=== PATIENT | male | born 1935 | race Caucasian/White ===

== ENCOUNTER 2017-04-30 07:34 | Inpatient (IN) | payer MEDICARE, BC ==
[2017-04-30] VITALS (8 sets, daily range): BP systolic 111–168; BP diastolic 55–90; PULSE 53–68; RESP 16–18; TEMP 97.5–97.9; O2SAT 95–97
[~2017-04-30] VITALS: Ht 185.4 cm; Wt 98.0 kg
[~2017-04-30 07:34] MED LIST: ASPI81 PO; BACT2OIN TOP; CENTTAB9 PO; IMDU30TA PO; METO25 PO; NITR.4 SL; RAPA8CAP PO; SULF1TAB47 PO; ZOCO40TA PO
[2017-04-30] MEDS ORDERED: IBUP200C17 (08:13)
[2017-04-30] MEDS ORDERED: ASPI81TA9 PO (08:13)
[2017-04-30] MEDS ORDERED: BYST2.5T2 PO (08:13)
[2017-04-30] MEDS ORDERED: CENTCHW3 (08:13)
[2017-04-30 08:30] LABS: AUTOMATED NEUTROPHIL # 3.2 TH/MM3 (1.8-7.7); BASOPHIL % 0.9 % (0.0-2.0); EOSINOPHIL # 0.2 TH/MM3 (0-0.4); EOSINOPHIL % 4.4 % (0.0-4.0); HEMATOCRIT 41.5 % (39.0-51.0); HEMO FLAGS DIFF FINAL; LYMPH % 21.8 % (9.0-44.0); LYMPHOCYTE # 1.2 TH/MM3 (1.0-4.8); MEAN CELL VOLUME 93.6 FL (80.0-100.0); MEAN CORPUSCULAR HEMOGLOBIN 31.6 PG (27.0-34.0); MEAN CORPUSCULAR HGB CONC 33.7 % (32.0-36.0); MONO % 12.6 % (0.0-8.0); NEUT % 60.3 % (16.0-70.0); PLATELET COUNT 218 TH/MM3 (150-450); RED BLOOD COUNT 4.43 MIL/MM3 (4.50-5.90); RED CELL DISTRIBUTION WIDTH 12.6 % (11.6-17.2); WHITE BLOOD COUNT 5.3 TH/MM3 (4.0-11.0)
[2017-04-30 08:36] LABS: APTT (PATIENT) 26.6 SEC (24.3-30.1); PROTHROMBIN TIME - PATIENT 10.9 SEC (9.8-11.6)
[2017-04-30 08:56] LABS: BICARBONATE 30.4 MEQ/L (21.0-32.0); POTASSIUM 3.7 MEQ/L (3.5-5.1)
[2017-04-30] MEDS: NS 1000P @30 MLS/HR (KVO) IV SCH (08:58)
[2017-04-30] MEDS ORDERED: HEPARIN-NS/PF INJ 500 ML ONE (10:34)
[2017-04-30] MEDS ORDERED: MIDAZOLAM HCL 2 MG/2 ML VIAL ONE (10:34)
[2017-04-30] MEDS ORDERED: SODIUM CHLOR 0.9% 1000 ML INJ 1,000 ML IV SCH (11:33)
--- NOTE | 2017-04-30 11:33 | CATHPROC ---
Versus HIS Report Study Information Study Number Admission Scheduled Start Study Start [id number] 04/30/2017 04/30/2017 Apr 30 2017 10:41AM Study Type Left/Possible PCI Referring Institution Admit Source Facility Department 1 Other [facility] Market Master Physician and Clinical Staff Initial Elvin Catherine Biosecurity Officer Mary Peck,KIMBERLEE Recorder Debbie Gutiérrez,RT(R) Lily MckennaRT(R) (BS) Procedures Performed Procedure Location (Site) Vessel Name Angiogram LV LV Ventricle Coronary Angiograms LCA Left Coronary Coronary Angiograms RCA Right Coronary L Heart Cath Wire insertion Fem Art (right) Femoral Art Equipment Time Broadband Engineer Description Size Mfg Part Number Used/Scraped TRANSDUCER, TRUWAVE [id number] 10:47 HERRING PECK * Used W/STOCKCOCK *[id number] *[id number] *[id number] PIGTAIL ANG. 145 INFINITI [id number] CATHETER *[id number] 10:47 [employer] INDUSTRIES PACK, CCL CUSTOM * Used *[id number] 10:47 [employer] PACER PEN, SKIN DUAL W/ RULER * Used *[id number] 10:47 Minutta SHEATH, FR6.5 PRELUDE 11CM FR 6.5 038ACT Used *[id number] 10:47 Minutta WIRE, 3MMJ .035 180CM 180CM Used *[id number] 10:47 NAMIC MANIFOLD, 4 PORT * Used *[id number] 10:47 [employer] OMNIPAQUE, 350 MG, 100ML 100ML [id number] Used 11:00 [employer] OMNIPAQUE, 350 MG, 150ML 150ML [id number] Used [id number] 10:47 [facility] BLANKET,WARM AIR CCL * Used *[id number] History: Current Medications Medication Dosage/Unit Route Frequency Last Date/Time Taken ASA Beta Jaren CRESTOR History: Allergies Allergy Reaction Codeine NAUSEA History: Risk Factors Family History of Hypertension Dyslipidemia Previous HI Previous Heart Failure Premature CAD Yes Yes Yes No No Prior Valve Prior PCI Prior PCIDate Prior CABG Surgery No Yes 04/01/2012 No Cerebrovascular Peripheral Artery Chronic Lung On Dialysis Diabetes Disease Disease Disease No No Yes No No History: Symptoms/Diagnosis Selection Items Chest pain History: CV Disease Selection Items Known CAD History: Stress Tests Stress or Imaging Studies Performed No History: Other Disease Selection Items CAD HTN History: Other Current Smoker Method Quit Packs a Day Years Used Pack Years No Cigarettes 50 Years Ago 1 10 10 Labs Hgb (g/dl) Hct (%) WBC (l/cumm) Platelets (thousands) 11.60-17.00 35.00-51.00 4.00-11.00 150.00-450.00 14.0 41.5 5.3 218 Glucose (mg/dl) BUN (mg/dl) Creatinine (mg/dl) BUN:Creatinine (1:x) 74.00-106.00 7.00-18.00 0.50-1.30 10.00-20.00 109 17 0.8 21.3 Na (meq/l) K (meq/l) Cl (meq/l) CO2 (mmol/L) Ca (mg/dl) 136.00-145.00 3.50-5.10 98.00-107.00 21.00-32.00 8.50-10.10 139 3.7 104 30.4 9 PT (sec) PTT (sec) INR (PTT:PT) 9.80-11.60 24.30-30.10 0.90-1.10 10.9 26.6 1 CPK-MB (ng/ML) 0.50-3.60 Not Drawn Medication Medication Total Dose (Bolus/Oral) Medication Total Dosage/Unit 1% XYLOCAINE 20 mL VERSED 1 mg Medications (Bolus/Oral) Medication Time Given Dosage/Unit Administered By Reason VERSED 04/30/2017 10:52:16 AM 1 mg Mary Peck Patient arrived on 1 mg VERSED given by Mary Peck, RN via Peripheral IV. 1% XYLOCAINE 04/30/2017 10:53:32 AM 20 mL Elvin Morales 20 mL 1% XYLOCAINE given in lab by Elvin Morales in Right Groin via Subcutaneous. Medication (Drip) Medication Time Given Dosage/Unit Concentration/Unit Diluent (ml) Solution IV Solutions 04/30/2017 10:43:07 AM 0 mL (IV) 500 NaCl .9 Patient arrived on IV Solutions in Left Antecubital via Peripheral IV. Pump/Drip Flow = 20 ml/hr usin g NaCl .9. Initial Case Assessment Cardiovascular HR Rhythm NIBP Chest Pain 52 KERI 155/74 0 Edema Present Skin color Skin None Normal Warm Circulatory - Right Pulses Dorsalis Pedis Femoral 2 3 Scale (0,1,2,3,4,d) Circulatory - Left Pulses Dorsalis Pedis Femoral 2 3 Scale (0,1,2,3,4,d) Circulatory - Lower Extremities Color Lower Right Color Lower Left Normal Normal Neurological State Oriented to time-place- Alert Moves all extremities person Respiration - General Respiration Rate SpO2 (%) (B/min) 11 96 Final Case Assessment Cardiovascular HR Rhythm NIBP Chest Pain 55 KERI 133/69 0 Edema Present Skin color Skin None Normal Warm Circulatory - Right Pulses Dorsalis Pedis Femoral 2 2 Scale (0,1,2,3,4,d) Circulatory - Left Pulses Dorsalis Pedis Femoral 2 2 Scale (0,1,2,3,4,d) Circulatory - Lower Extremities Color Lower Right Color Lower Left Normal Normal Neurological State Oriented to time-place- Alert Moves all extremities person Respiration - General Respiration Rate SpO2 (%) (B/min) 17 95 Chronological Log Time Study Chronological Log 10:25:40 Patient arrived via Bed. 10:26:11 Patient Name, D.O.B, / Armband Verified By R.N. 10:27:16 Consent signed by the physician and the patient and verified by the Market Master staff. 10:28:23 Pre-op and post- op instructions given; patient acknowledges understanding of instructions. Verbal Stimulation=~VERBAL~ Physical Stimulation=~PHYSICAL~ Airway=~AIRWAY~ Respiration=~RESPIR ATION~ 10:29:26 TOTAL=~TOTAL~. (0=absent, 1=limited, 2=present) 10:30:43 Patient has been NPO for More than 6Hrs. 10:31:48 Skin Breakdown- 10:32:54 Patient Warmer Placed on the Table. 10:33:20 A # 20 IV was noted in the Antecubital (left). Grade = 0 10:40:03 MD arrived. Vitals capture started with the following parameters, Patient=Adult, Interval=5 min, Initial Pr zzoriq=267 mmHg, 10:40:41 Deflation Rate=5 mmHg 10:42:51 Reference ECG taken 10:43:07 Patient arrived on IV Solutions in Left Antecubital via Peripheral IV. Pump/Drip Flow = 20 ml/hr using NaCl .9. 10:43:22 History and physical on the chart or being dictated. Assessment: Initial Case, HR=52 BPM, Rhythm=KERI, OAPD=462/74 mmhg, Chest Pain=0, Edema=None, Color=Normal, Skin = Warm Right Pulses: Enoch Ped=2, Femoral=3 Left Pulses: Enoch Ped=2, Femoral=3 10:43:23 Lower Right Extremities: Color=Normal Lower Left Extremities: Color=Normal Neurological: State=Alert, Ox3, MCCARTY Respiration: Resp=11 B/min, SpO2=96 % 10:43:59 Bilateral groins prepped with 2% chlorhexidine, and with a 3 min. waiting time. 10:44:24 HR=53 bpm, FJWC=415/74 mmhg, SpO2=96.0 %, Resp=17 B/min, Pain=0, Sade=10, Hall=2 10:49:27 HR=55 bpm, ANUA=571/74 mmhg, SpO2=96.0 %, Resp=13 B/min, Pain=0, Sade=10, Hall=2 Time Out. Correct patient, correct procedure,correct physician, ,power injector loaded with con trast with surgical team 10:51:02 present. Time Out Concurred by MD, individual staff and FEED MIXER in procedure 10:51:16 Case Start 10:52:06 Pressure channel 1 zeroed. 10:52:16 Patient arrived on 1 mg VERSED given by Mary Peck, KIMBERLEE via Peripheral IV. 10:53:11 Verbal Stimulation=2 Physical Stimulation=2 Airway=2 Respiration=2 TOTAL=8. (0=absent, 1=li mited, 2=present) 10:53:32 20 mL 1% XYLOCAINE given in lab by Elvin Morales in Right Groin via Subcutaneous. 10:54:28 HR=56 bpm, ILVI=367/78 mmhg, SpO2=93.0 %, Resp=17 B/min, Pain=0, Sade=10, Hall=2 10:58:29 Access site was Right Femoral Artery. 10:58:37 A wire was inserted via Fem Art (right). 10:58:40 A SHEATH, FR6.5 PRELUDE 11CM FR 6.5 was advanced into the Fem Art (right) using the Percuta neous technique. 10:59:31 HR=52 bpm, CHEK=855/73 mmhg, SpO2=94.0 %, Resp=15 B/min, Pain=0, Sade=10, Hall=2 A 3DRC INFINITI CATHETER FR 6 was advanced over a wire. OMNIPAQUE, 350 MG, 100ML 100ML was used for 10:59:39 injections. Recorded Pressure: Ao, HR=53, Condition=Condition 1 11:01:28 (Aorta) Ao 157/70/103 11:02:32 The RCA was injected and visualized at various angles. OMNIPAQUE, 350 MG, 100ML 100ML used . After removing the current catheter a PIGTAIL ANG. 145 INFINITI CATHETER FR 6 was advanced over a WIRE, 3MMJ 11:03:33 .035 180CM 180CM. 11:04:28 HR=53 bpm, VHBQ=362/73 mmhg, SpO2=93.0 %, Resp=11 B/min, Pain=0, Sade=10, Hall=2 Recorded Pressure: LV, HR=58, Condition=Condition 1 11:04:43 (Left Ventricle) LV 159/3/15 Recorded Pressure: LV, HR=53, Condition=Condition 1 11:05:08 (Left Ventricle) LV 158/4/15 11:06:34 The LV was injected at 10 cc/sec for a total of 30. OMNIPAQUE, 350 MG, 100ML 100ML used. Recorded Pressure: LV, Ao, HR=56, Condition=Condition 1 11:07:20 (Left Ventricle) LV 149/6/15, (Aorta) Ao 151/65/97 After removing the current catheter a JL 4.5 INFINITI CATHETER FR 6 was advanced over a WIRE, 3 MMJ .035 180CM 11:07:51 180CM. Recorded Pressure: Ao, HR=59, Condition=Condition 1 11:09:00 (Aorta) Ao 145/63/95 11:09:30 HR=55 bpm, TDMX=339/72 mmhg, SpO2=94.0 %, Resp=13 B/min, Pain=0, Sade=10, Hall=2 11:15:02 The LCA was injected and visualized at various angles. OMNIPAQUE, 350 MG, 100ML 100ML used . 11:15:09 HR=55 bpm, JUSQ=881/69 mmhg, SpO2=95.0 %, Resp=17 B/min, Pain=0, Sade=10, Hall=2 11:15:30 Catheter was removed Assessment: Final Case, HR=55 BPM, Rhythm=KERI, YCAM=768/69 mmhg, Chest Pain=0, Edema=None, Color=Normal, Skin = Warm Right Pulses: Enoch Ped=2, Femoral=2 Left Pulses: Enoch Ped=2, Femoral=2 11:15:34 Lower Right Extremities: Color=Normal Lower Left Extremities: Color=Normal Neurological: State=Alert, Ox3, MCCARTY Respiration: Resp=17 B/min, SpO2=95 % 11:16:00 Catheter(s) removed without difficulty 11:16:08 Case End 11:16:10 Sterile dressing applied to site 11:16:11 No case complications noted. 11:16:13 Cine recording checked. 11:16:17 Bedside Report will be given. 11:16:18 Contrast Scanned 11:16:22 A Left Heart Cath was performed. 11:16:26 Clinical correlaton risk stratification. 11:20:06 NUGR=525/71 mmhg, Pain=0, Sade=10, Hall=2 End Study - Contrast Media Used In Study Contrast Total Opened (mL) Total Used (mL) Total Wasted (mL) Omnipaque 75 75 0 End Study - Maximum Contrast Load Max Contrast Load (mL) 586.9 End Study - Radiation Exposure Fluoro Time (minutes) 3.3 End Study - Patient Disposition Complications Transferred To No Outpatient Bed
[2017-04-30] MEDS ORDERED: MISC INFORMATION XX ONE (11:45)
[2017-04-30] MEDS ORDERED: BACITRACIN OINT 0.9 GM PKT TOP ONE (11:45)
[2017-04-30] MEDS ORDERED: oxyCODONE/ACETAMINOPHEN 5 MG/325 MG TAB PO PRN (11:45)
[2017-04-30] MEDS ORDERED: ONDANSETRON HCL 4 MG/2 ML VIAL IV PRN (11:45)
[2017-04-30] MEDS ORDERED: SODIUM CHLORIDE 0.9% FLUSH 10 ML FLUSH IV FLUSH PRN (11:45)
--- NOTE | 2017-04-30 12:39 | MA ---
cc: MARK KENNY M.D., JEFFREY DATE: 04/30/2017 PROCEDURE PERFORMED Left heart catheterization, left ventriculography, coronary angiography. BRIEF HISTORY Juan Alberto Garcia is a 82-year-old man with known multivessel coronary artery disease. In the last 3 weeks his angina has accelerated to the point where he has angina with just minimal activity. Based on the anginal pattern it could be deemed unstable. DESCRIPTION OF PROCEDURE The patient was brought to the cardiac laborer wharf in a fasting state. The right groin was prepped and draped in sterile fashion. Using 1% lidocaine for local anesthesia I entered the right femoral artery with a needle but was unable to pass a wire. I stopped and held pressure and obtained hemostasis and then second time was able to get clean access and a 6-1/2 Mohawk sheath was placed. I used the 3DRC catheter and a regular wire and carefully navigated through the iliac tortuosity into the ascending aorta. The remainder of the case was performed using the exchange wire. The patient is known to have tortuous iliacs and a small abdominal aortic aneurysm. Right coronary angiography was performed using the 3DRC catheter with pressure damping. The left ventricular pressure followed by left ventriculography and then a pullback were performed using an angled pigtail catheter. The left coronary angiography was performed using a left 4.5 Manisha catheter without damping. The sheath is being pulled manually. There were no complications. FINDINGS 1. Hemodynamics. Left ventricular pressure was 149/6 with an end-diastolic pressure of 15. Aortic pressure is 145/63 with a mean 95. There is no gradient during pullback from left ventricle to the aorta. 2. Left ventriculography. LV ejection fraction is about 50% without obvious focal wall motion abnormalities. There is a trivial 1+ degree of mitral regurgitation. 3. Coronary angiography. The left main coronary artery is diffusely diseased and eccentric, probably eccentric 50% ostial stenosis but suspect diffuse plaquing in the LAD. It bifurcates into the LAD and circumflex vessels. Left anterior descending artery is diseased at the ostium about 70% and ends up with about a 70% stenosis before the bifurcation of the major diagonal. Major diagonal is severely diseased, it bifurcates, there is probably 80% disease of the diagonal. The remainder of the LAD demonstrates mild diffuse disease but appears graftable. Suspect there may be a significant intramyocardial segment based on the shape of the LAD. The circumflex artery is dominant. It gives off one major obtuse marginal branch, one significant posterolateral branch and left posterior descending artery branch. The ostium of the circumflex artery has a 95% tubular stenosis. The major obtuse marginal branch has 50% ostial and 70% proximal disease and is easily graftable vessel. The posterolateral and posterior descending artery branches probably have about 50% disease proximally, at least one of these should be graftable. The right coronary artery is nondominant and has 70% proximal disease. CONCLUSION 1. Slightly elevated left ventricular end-diastolic pressure. 2. Low normal LV systolic function. 3. Severe multivessel disease with critical disease of the ostium of the circumflex artery. PLAN I am going to go ahead and admit him for observation and get a cardiac surgical consult. MD STORM Russell/KATIE /11:35 AM /12:27 PM
--- NOTE | 2017-04-30 12:45 | EKG ---
Date Performed: 04/30/2017 Time Performed: 09:32:34 PTAGE: 82 years EKG: Sinus bradycardia. Inferior T wave changes are nonspecific Borderline ECG PREVIOUS TRACING : 04/01/2012 06.58 DOCTOR: Nasir Loving Interpretating Date/Time 04/30/2017 12:44:35
[2017-04-30] MEDS ORDERED: IOHEXOL 350 MG/ML 100 ML BTL (for Cath Lab) OTHER ONE (16:16)
[2017-04-30] MEDS: NITROGLYCERIN 2% OINT 1 GM PACKET TOPICAL SCH ×2 (18:00→23:31)
--- NOTE | 2017-04-30 18:14 | RADRPT ---
EXAM DATE/TIME: 04/30/2017 17:18 [facility] COMPARISON: No previous studies available for comparison. INDICATIONS : Pre-op cardiac surgery. MEDICAL HISTORY : Hypercholesterolemia. Arthritis. Carcinoma, prostate. Hernia, hiatal. Carcinoma, skin. SURGICAL HISTORY : Right wrist surgery. Hiatal hernai repair. Prostate surgery. Skin cancer removal. ENCOUNTER: Initial ACUITY: 1 day PAIN SCORE: 2/10 LOCATION: Bilateral legs. TECHNIQUE: Venous ultrasound of the left and right leg was performed from the inguinal ligament to the proximal calf. Real-time, color Doppler and spectral tracing, compression and augmentation techniques were us ed. FINDINGS: RIGHT LEG: There is normal compressibility of the deep venous system from the inguinal region to the proximal ca lf. No echogenic clot is seen in the lumen of the common femoral, femoral, popliteal, and posterior tibial veins. There is a normal response of the venous system to proximal and distal augmentation an d respiration. LEFT LEG: There is normal compressibility of the deep venous system from the inguinal region to the proximal ca lf. No echogenic clot is seen in the lumen of the common femoral, femoral, popliteal, and posterior tibial veins. There is a normal response of the venous system to proximal and distal augmentation an d respiration. CONCLUSION: 1. No sonographic evidence for lower extremity DVT. Bob Pastor MD on April 30, 2017 at 18:12 Board Certified Radiologist. This report was verified electronically.
--- NOTE | 2017-04-30 18:14 | RADRPT ---
EXAM DATE/TIME: 04/30/2017 17:02 [facility] COMPARISON: No previous studies available for comparison. INDICATIONS : Pre-op cardiac surgery. MEDICAL HISTORY : Hypercholesterolemia. Carcinoma, prostate. Arthritis. Hernia, hiatal. Carcinoma, skin. SURGICAL HISTORY : Right wrist surgery. Hiatal hernai repair. Prostate surgery. Skin cancer removal. ENCOUNTER: Initial ACUITY: 1 day PAIN SCORE: 1/10 LOCATION: Bilateral neck PEAK SYSTOLIC VELOCITIES (cm/sec): ICA/CCA RATIO: Right: 1.3 Left: 1.1 ICA: Right: 83.6 Left: 86.0 CCA: Right: 64.6 Left: 77.8 ECA: Right: 102.3 Left: 77.8 VERTEBRAL: Right: 43.9 antegrade Left: 34.0 antegrade Elevated flow velocities and ICA/CCA ratios have been found to correlate with increased degrees of vessel stenosis, calculated as percentage of diameter relative to a normal segment of distal ICA/CCA FINDINGS: RIGHT CAROTID: Calcified plaque in the bulb extending to the origin of the right ICA with resultant mild stenos is. Moderate stenosis of the ECA origin. LEFT CAROTID: Calcified plaque in the bulb extending to the origin of the left ICA with resultant mild stenosi s. VERTEBRAL ARTERIES: Antegrade flow is seen in both vertebral arteries. MISCELLANEOUS: None. CONCLUSION: 1. Mild, <50%, stenosis of the internal carotid artery origins bilaterally. 2. Antegrade vertebral artery flow bilaterally. Bob Pastor MD on April 30, 2017 at 18:09 Board Certified Radiologist. This report was verified electronically.
--- NOTE | 2017-04-30 18:16 | RADRPT ---
EXAM DATE/TIME: 04/30/2017 17:37 [facility] COMPARISON: No previous studies available for comparison. INDICATIONS : Pre-op cardiac surgery. MEDICAL HISTORY : Hypercholesterolemia. Hernia, hiatal. Carcinoma, prostate. Arthritis. Carcinoma, skin. SURGICAL HISTORY : Right wrist surgery. Hiatal hernai repair. Prostate surgery. Skin cancer removal. ENCOUNTER: Initial ACUITY: 1 day PAIN SCORE: 2/10 LOCATION: Bilateral legs. GREATER SAPHENOUS VEIN THIGH: PROXIMAL: Right 4 mm Left 3 mm MID: Right 3 mm Left 3 mm DISTAL: Right 3 mm Left 2 mm CALF: PROXIMAL: Right 2 mm Left 2 mm MID: Right 1 mm Left Non-visualized DISTAL: Right 2 mm Left Non-visualized FINDINGS: The venous system of the lower extremities are patent by color Doppler imaging. Measurements of the leg veins (in mm) are listed above. CONCLUSION: 1. Patent saphenous veins with mapping as above. Bob Pastor MD on April 30, 2017 at 18:13 Board Certified Radiologist. This report was verified electronically.
--- NOTE | 2017-04-30 18:29 | RADRPT ---
EXAM DATE/TIME: 04/30/2017 18:14 [facility] COMPARISON: No previous studies available for comparison. INDICATIONS : Evaluate for pneumonia, pneumothorax, or communicable disease. Pre op CABG. MEDICAL HISTORY : Hypercholesterolemia. Carcinoma, prostate. Carcinoma, skin. SURGICAL HISTORY : Hiatal hernai repair. Prostate surgery. Skin cancer removal. ENCOUNTER: Initial ACUITY: 1 day PAIN SCORE: 0/10 LOCATION: Bilateral chest FINDINGS: PA and lateral views of the chest demonstrate the lungs to be symmetrically aerated without evidence of mass, infiltrate or effusion. The cardiomediastinal contours are unremarkable. Osseous structure s are intact. CONCLUSION: No acute disease. Silviano Tamez MD on April 30, 2017 at 18:28 Board Certified Radiologist. This report was verified electronically.
--- NOTE | 2017-04-30 18:54 | RADRPT ---
EXAM DATE/TIME: 04/30/2017 18:18 [facility] COMPARISON: CHEST PA & LAT, April 30, 2017, 18:14. INDICATIONS : Pre-operative for aortic calcification. RADIATION DOSE: 5.68 CTDIvol (mGy) MEDICAL HISTORY : Cardiovascular disease. Carcinoma, prostate. Skin cancer. SURGICAL HISTORY : Hiatal hernia. ENCOUNTER: Initial ACUITY: 1 day PAIN SCALE: 2/10 LOCATION: Bilateral chest TECHNIQUE: Volumetric scanning of the chest was performed. Using automated exposure control and adjustment of t he mA and/or kV according to patient size, radiation dose was kept as low as reasonably achievable to obtain optimal diagnostic quality images. DICOM format image data is available electronically for r eview and comparison. Follow-up recommendations for incidentally detected pulmonary nodules are based at a minimum on nodul e size and patient risk factors according to Fleischner Society Guidelines. FINDINGS: There is mild peribronchial thickening in the lower lobes left greater than right. There is minimal i nfiltrate versus atelectasis in the left lower lobe at the left lung base. There are no fractures. No adenopathy. Extensive corner artery calcification is identified and atherosclerotic calcification of the aorta is present. At the upper pole of the left kidney, 2 exophytic masses are identified measur ing 4.1 and 4.3 cm and 8 and 9 Hounsfield units characteristic of cysts. Adrenals are normal. There i s calcification at the root of the aorta, and there is focal dilatation of the proximal descending th oracic aorta measuring 3.9 x 1.1 cm in transverse and AP dimension. CONCLUSION: 1. Extensive atherosclerosis. 2. There is peribronchial cuffing in both lower lobes with minimal left lower lobe infiltrate identif ied. 3. Mild dilatation of the proximal descending thoracic aorta. Silviano Tamez MD on April 30, 2017 at 18:49 Board Certified Radiologist. This report was verified electronically.
[2017-04-30 19:07] LABS: ALT (GPT) 35 U/L (12-78); AST (GOT) 21 U/L (15-37)
[2017-04-30 19:08] LABS: ALKALINE PHOSPHATASE 89 U/L (45-117); INDIRECT BILIRUBIN 0.4 MG/DL (0.0-0.8); TOTAL BILIRUBIN ADULT 0.5 MG/DL (0.2-1.0)
[2017-04-30] MEDS: SODIUM CHLORIDE 0.9% FLUSH 10 ML FLUSH IV FLUSH SCH (21:19)
[2017-04-30 22:38] LABS: HEMOGLOBIN A1a 0.7 %; HEMOGLOBIN A1b 1.5 %; HEMOGLOBIN Ao 85.8 %; HEMOGLOBIN LA1C 1.7 %; HEMOGLOBIN P3 3.6 %
[2017-05-01] VITALS (29 sets, daily range): BP systolic 107–143; BP diastolic 57–77; PULSE 52–88; RESP 16–18; TEMP 96.9–98.3; O2SAT 93–95
[2017-05-01 00:18] LABS: BLOOD, URINE NEG (NEG); COMMENT (UR) CULT NOT INDICATED; CULTURE IF INDICATED CULT NOT INDICATED; GLUCOSE,URINE NEG (NEG); KETONE, URINE NEG (NEG); NITRITE,URINE NEG (NEG); URINE COLOR YELLOW (YELLW/STRAW)
[2017-05-01] MEDS: NITROGLYCERIN 2% OINT 1 GM PACKET TOPICAL SCH ×4 (05:50→23:24)
[2017-05-01] MEDS: METOPROLOL TARTRATE 25 MG TAB PO SCH ×3 (06:00→23:24)
[2017-05-01 06:45] LABS: AUTOMATED NEUTROPHIL # 4.7 TH/MM3 (1.8-7.7); BASOPHIL % 0.7 % (0.0-2.0); EOSINOPHIL # 0.2 TH/MM3 (0-0.4); EOSINOPHIL % 2.9 % (0.0-4.0); HEMATOCRIT 36.9 % (39.0-51.0); HEMO FLAGS DIFF FINAL; LYMPH % 13.9 % (9.0-44.0); LYMPHOCYTE # 0.9 TH/MM3 (1.0-4.8); MEAN CELL VOLUME 92.4 FL (80.0-100.0); MEAN CORPUSCULAR HEMOGLOBIN 31.8 PG (27.0-34.0); MEAN CORPUSCULAR HGB CONC 34.5 % (32.0-36.0); MONO % 13.2 % (0.0-8.0); NEUT % 69.3 % (16.0-70.0); PLATELET COUNT 183 TH/MM3 (150-450); RED BLOOD COUNT 3.99 MIL/MM3 (4.50-5.90); RED CELL DISTRIBUTION WIDTH 12.5 % (11.6-17.2); WHITE BLOOD COUNT 6.8 TH/MM3 (4.0-11.0)
[2017-05-01 07:23] LABS: BICARBONATE 28.5 MEQ/L (21.0-32.0); POTASSIUM 4.4 MEQ/L (3.5-5.1)
[2017-05-01] MEDS: SODIUM CHLORIDE 0.9% FLUSH 10 ML FLUSH IV FLUSH SCH ×2 (08:16→21:00)
[2017-05-01] MEDS: ASPIRIN EC 81 MG TABEC PO SCH (08:16)
[2017-05-01] MEDS: NS 1000P @30 MLS/HR (KVO) IV SCH (08:16)
--- NOTE | 2017-05-01 08:16 | MB ---
cc: EDWIGE HERRERA DATE OF 1935 DATE OF CONSULTATION 04/30/2017 HISTORY OF THE PRESENT ILLNESS An 82-year-old male a patient of Dr. Kirt Pearson and Dr. Elvin Morales, history of coronary artery disease presented because of the chest discomfort for the last couple of weeks midsternal, dull in nature, feels like a squeezing sensation. Positive for associated shortness of breath. Underwent cardiac cath by Dr. Morales showing EF of 50%, left main of 50%, proximal LAD 70%, diagonal 80%, circumflex is 95%, the OM 75%, proximal RCA 70%. The PDA has 50%. We were consulted to evaluate for coronary artery bypass grafting. PAST MEDICAL HISTORY 1. History of abdominal aortic aneurysm, being followed. 2. Coronary artery disease. 3. Degenerative joint disease. 4. Headache. 5. Hernia. 6. Hyperlipidemia. 7. Peripheral arterial disease followed by Dr. Hickman. 8. Pre diabetes. 9. Prostate cancer. Had prior radiation in 2011. 10. Arthroscopic knee surgery. PAST SURGICAL HISTORY 1. Otherwise he has had a cardiac cath 2011, three-vessel disease. EF of 50% at that time. 2. Bilateral hernia repair. 3. Left partial knee replacement. 4. Skin cancer surgery. ALLERGIES INCLUDE CODEINE, MIRAPEX, REQUIP. MEDICATIONS Home medications include: 1. Aspirin. 2. Bystolic. 3. Crestor. 4. Nitroglycerine as needed. FAMILY HISTORY He has a brother with diabetes. Mother with cancer. Father he has unknown history. SOCIAL HISTORY The patient . Smoked for about 20 years two packs per day, quit 50 years ago. Retired with a [employer]. One child. REVIEW OF SYSTEMS GENERAL: no night sweats, fever, heat and cold intolerance. SKIN: No psoriasis, itching or hives. HEENT: No blurred vision, hearing loss. RESPIRATORY: Positive for some shortness of breath. CARDIOVASCULAR: As above in HPI. GASTROINTESTINAL: No diarrhea or vomiting. GENITOURINARY: No burning, frequency, urgency. CENTRAL NERVOUS SYSTEM: No history of TIA, CVA, seizure disorder. ENDOCRINE: No diabetes or hypothyroidism. PHYSICAL EXAMINATION VITAL SIGNS: On exam blood pressure 160/90, heart rate 52, temperature max 97.3. GENERAL: Patient is awake, alert, no acute distress. HEENT: Head is normocephalic, atraumatic. Oral mucosa pink, moist. He wears dentures. NECK: Supple. No JVD. CARDIOVASCULAR: Heart sounds S1-S2, regular rate and rhythm. He has got a grade 2/6 systolic murmur. LUNGS: Clear to auscultation. No wheezes, rales or rhonchi. ABDOMEN: Soft, nontender. No masses or organomegaly. EXTREMITIES: No cyanosis, clubbing or edema. LABORATORY FINDINGS Shows hemoglobin of 14, hematocrit of 41, white cell count 5.3, platelet count of 218. Sodium 139, potassium 3.7, BUN of 17, creatinine 0.87, glucose 109. INR 1.0. His testing noted per Dr. Elvin Morales, the last abdominal aortic ultrasound in November of 2016 showed a 3 x 4 x 3 x 9 and follow up in 6 months. EKG shows sinus bradycardia, further testing is pending. IMPRESSION This is an 82-year-old male with complaint of chest pain, history of coronary artery disease known three-vessel disease now with multivessel disease, EF of 50%. Cardiac films have been evaluated by Dr. Edwige Herrera. Plan will be for surgery. The patient will be kept in overnight per Dr. Elvin Morales and evaluated the a.m. If no further chest no chest discomfort the patient can possibly be discharged home and then follow up as an outpatient for surgery next week. In the meantime will we will order full workup including carotid ultrasound, leg vein mapping and further lab work. Further planning per Dr. Edwige Herrera. STS data will be discussed and documented in the electronic record. Dictated by MARIO Siddiqi MD MAGALYS Copeland/ISRAEL /4:22 PM /8:19 AM
[2017-05-01] MEDS ORDERED: ATORVASTATIN 10 MG TAB PO SCH (09:00)
[2017-05-01] MEDS: ACETAMINOPHEN 325 MG TAB PO PRN (10:07)
--- NOTE | 2017-05-01 10:22 | PD.CARD.PN ---
Subjective Subjective Remarks c/o headache. No angina Objective Medications Current Medications Medications (Trade) Dose Ordered Sig/Nikki Route Start Time Stop Time Status Last Admin (NS 1000 ml Inj) 1,000 ml @ 30 mls/hr Q24H IV 04/30/17 09:00 05/01/17 08:16 (NS Flush) 2 ml BID IV FLUSH 04/30/17 21:00 05/01/17 08:16 (NS Flush) 2 ml UNSCH PRN IV FLUSH 04/30/17 11:45 (Percocet 5-325 Mg) 1 tab Q4H PRN PO 04/30/17 11:45 (Zofran Inj) 4 mg Q4H PRN IV 04/30/17 11:45 (Ecotrin Ec) 81 mg DAILY PO 05/01/17 09:00 05/01/17 08:16 (Lopressor) 25 mg Q8HR PO 04/30/17 14:00 (Nitroglycerin 2% Oint) 1 inch Q6HR TOPICAL 04/30/17 12:00 05/01/17 05:50 (Lipitor) 10 mg DAILY PO 05/01/17 09:00 05/01/17 08:16 (Tylenol) 650 mg Q4H PRN PO 05/01/17 10:15 05/01/17 10:07 Vital Signs / I&O Vital Signs Date Time Temp Pulse Resp B/P Pulse Ox O2 Delivery O2 Flow Rate FiO2 05/01/17 07:01 88 05/01/17 06:00 62 05/01/17 05:17 21 05/01/17 05:00 54 05/01/17 04:00 96.9 54 18 119/57 93 05/01/17 04:00 64 05/01/17 03:00 54 05/01/17 02:00 64 05/01/17 01:00 62 05/01/17 00:00 97.8 69 18 113/67 94 05/01/17 00:00 52 04/30/17 23:00 68 04/30/17 22:00 60 04/30/17 21:00 58 04/30/17 20:00 57 04/30/17 20:00 97.8 64 18 111/55 95 04/30/17 17:01 64 04/30/17 16:30 97.9 54 18 161/89 97 04/30/17 16:00 55 04/30/17 11:20 96 Room Air I/O 04/30/17 04/30/17 04/30/17 05/01/17 05/01/17 05/01/17 07:00 15:00 23:00 07:00 15:00 23:00 Intake Total 1384 ml Output Total 750 ml Balance 634 ml Intake Oral 480 ml IV Total 904 ml Output Urine Total 750 ml Physical Exam GENERAL: Well developed, well nourished. No acute distress. HEENT: Jugular venous pressure is normal. CHEST: Lungs clear to auscultation bilaterally. Unlabored respiratory effort. CARDIAC: Regular rate and rhythm without S3, S4, or murmur. ABDOMEN: Soft, nontender, no hepatosplenomegaly. Bowel sounds present. EXTREMITIES: No clubbing, cyanosis, or edema. Right groin OK Laboratory Laboratory Tests Test 04/30/17 04/30/17 05/01/17 22:04 23:43 05:48 Blood Type O POSITIVE Antibody Screen NEGATIVE Urine Color YELLOW Urine Turbidity CLEAR Urine pH 7.0 Urine Specific Jermyn 1.022 Urine Protein NEG mg/dL Urine Glucose (UA) NEG mg/dL Urine Ketones NEG mg/dL Urine Occult Blood NEG Urine Nitrite NEG Urine Bilirubin NEG Urine Urobilinogen LESS THAN 2.0 MG/DL Urine Leukocyte Esterase NEG Urine RBC LESS THAN 1 /hpf Microscopic Urinalysis Comment CULT NOT INDICATED White Blood Count 6.8 TH/MM3 Red Blood Count 3.99 MIL/MM3 Hemoglobin 12.7 GM/DL Hematocrit 36.9 % Mean Corpuscular Volume 92.4 FL Mean Corpuscular Hemoglobin 31.8 PG Mean Corpuscular Hemoglobin 34.5 % Concent Red Cell Distribution Width 12.5 % Platelet Count 183 TH/MM3 Mean Platelet Volume 9.7 FL Neutrophils (%) (Auto) 69.3 % Lymphocytes (%) (Auto) 13.9 % Monocytes (%) (Auto) 13.2 % Eosinophils (%) (Auto) 2.9 % Basophils (%) (Auto) 0.7 % Neutrophils # (Auto) 4.7 TH/MM3 Lymphocytes # (Auto) 0.9 TH/MM3 Monocytes # (Auto) 0.9 TH/MM3 Eosinophils # (Auto) 0.2 TH/MM3 Basophils # (Auto) 0.0 TH/MM3 CBC Comment DIFF FINAL Differential Comment Sodium Level 140 MEQ/L Potassium Level 4.4 MEQ/L Chloride Level 105 MEQ/L Carbon Dioxide Level 28.5 MEQ/L Anion Gap 7 MEQ/L Blood Urea Nitrogen 19 MG/DL Creatinine 0.89 MG/DL Estimat Glomerular Filtration 82 ML/MIN Rate Random Glucose 101 MG/DL Calcium Level 8.4 MG/DL Assessment and Plan Problem List: (1) Unstable angina pectoris Assessment and Plan: Had rest pain prior to admit. Keep in hospital until revasc. Add IV heparin (2) 3-vessel CAD Assessment and Plan: needs CABG. Target vessels acceptable (3) Abdominal aortic aneurysm (AAA) Assessment and Plan: Less than 4 cm on last check (4) Hyperlipidemia Assessment and Plan: Intolerant of Lipitor so will DC. Only tolerates Crestor 1x/week which is Mondays. Elvin Morales MD May 01, 2017 10:22
[2017-05-01] MEDS ORDERED: HEPARIN SODIUM - IV 10,000 UNITS/10 ML VIAL IV ONE (10:30)
[2017-05-01] MEDS: HEPARIN-D5W INJ 250 ML IV SCH (11:35)
[2017-05-01] MEDS ORDERED: SODIUM CHLORIDE 0.9% FLUSH 10 ML FLUSH IV FLUSH PRN (14:45)
[2017-05-01] MEDS ORDERED: ceFAZolin 2 GM PREMIX 50 ML IV SCH (14:45)
[2017-05-01] MEDS ORDERED: CEFAZOLIN INJ 500 MG in SODIUM CHLORIDE 0.9% IRR BTL 500 ML IRRIGATION SCH (14:45)
[2017-05-01] MEDS ORDERED: INSULIN REGULAR (IV INFUSION) 100 UNITS in SODIUM CHLORIDE 0.9% INJ 100 ML IV SCH (14:45)
[2017-05-01] MEDS ORDERED: PAPAVERINE INJ 60 MG, NITROGLYCERIN INJ 100 MCG, DILTIAZEM INJ 100 MG in SODIUM CHLORID... IRRIGATION SCH (14:45)
[2017-05-01] MEDS ORDERED: CHLORHEXIDINE GLUCONATE 4% SOLN 120 ML BTL TOPICAL SCH (14:45)
[2017-05-01] MEDS ORDERED: METOPROLOL TARTRATE 25 MG TAB PO SCH (14:45)
--- NOTE | 2017-05-01 15:03 | PD.CAR.PN ---
CVT Progress Note Subjective/Hospital Course: 82/ male hx of CAD c/o of chest discomfort, pt brought in outpt , underwent cardiac cath by Dr Morales , found to have multi vessel disease 50% Left Main, 70 % prox LAD, daig 80% CX 95%, OM 75% RCA 70% EF 50% pt has also been having chest pain at rest PMH: AAA, CAD, DJD, HLP, melanoma , PAD, prostate CA, PAD 05/01 pt c/o of pain at rest, decision to keep pt in hospital and undergo CABG on Thursday 05/03 Objective: GENERAL: SKIN: Warm and dry. HEAD: Normocephalic. EYES: No scleral icterus. No injection or drainage. NECK: Supple, trachea midline. No JVD or lymphadenopathy. CARDIOVASCULAR: Regular rate and rhythm without murmurs, gallops, or rubs. RESPIRATORY: Breath sounds equal bilaterally. No accessory muscle use. GASTROINTESTINAL: Abdomen soft, non-tender, nondistended. MUSCULOSKELETAL: No cyanosis, or edema. BACK: Nontender without obvious deformity. No CVA tenderness. Vital Signs Date Time Temp Pulse Resp B/P Pulse Ox O2 Delivery O2 Flow Rate FiO2 05/01/17 14:01 58 05/01/17 13:00 54 05/01/17 12:00 62 05/01/17 11:15 98.3 57 18 122/62 94 05/01/17 11:00 56 05/01/17 10:00 56 05/01/17 09:00 58 05/01/17 08:01 97.4 59 18 107/64 94 05/01/17 08:00 58 05/01/17 07:01 88 05/01/17 06:00 62 05/01/17 05:17 21 05/01/17 05:00 54 05/01/17 04:00 96.9 54 18 119/57 93 05/01/17 04:00 64 05/01/17 03:00 54 05/01/17 02:00 64 05/01/17 01:00 62 05/01/17 00:00 97.8 69 18 113/67 94 05/01/17 00:00 52 04/30/17 23:00 68 04/30/17 22:00 60 04/30/17 21:00 58 04/30/17 20:00 57 04/30/17 20:00 97.8 64 18 111/55 95 04/30/17 17:01 64 04/30/17 16:30 97.9 54 18 161/89 97 04/30/17 16:00 55 Labs: Laboratory Tests Test 05/01/17 05:48 White Blood Count 6.8 TH/MM3 (4.0-11.0) Red Blood Count 3.99 MIL/MM3 (4.50-5.90) Hemoglobin 12.7 GM/DL (13.0-17.0) Hematocrit 36.9 % (39.0-51.0) Mean Corpuscular Volume 92.4 FL (80.0-100.0) Mean Corpuscular Hemoglobin 31.8 PG (27.0-34.0) Mean Corpuscular Hemoglobin 34.5 % Concent (32.0-36.0) Red Cell Distribution Width 12.5 % (11.6-17.2) Platelet Count 183 TH/MM3 (150-450) Mean Platelet Volume 9.7 FL (7.0-11.0) Neutrophils (%) (Auto) 69.3 % (16.0-70.0) Lymphocytes (%) (Auto) 13.9 % (9.0-44.0) Monocytes (%) (Auto) 13.2 % (0.0-8.0) Eosinophils (%) (Auto) 2.9 % (0.0-4.0) Basophils (%) (Auto) 0.7 % (0.0-2.0) Neutrophils # (Auto) 4.7 TH/MM3 (1.8-7.7) Lymphocytes # (Auto) 0.9 TH/MM3 (1.0-4.8) Monocytes # (Auto) 0.9 TH/MM3 (0-0.9) Eosinophils # (Auto) 0.2 TH/MM3 (0-0.4) Basophils # (Auto) 0.0 TH/MM3 (0-0.2) CBC Comment DIFF FINAL Differential Comment Sodium Level 140 MEQ/L (136-145) Potassium Level 4.4 MEQ/L (3.5-5.1) Chloride Level 105 MEQ/L (98-107) Carbon Dioxide Level 28.5 MEQ/L (21.0-32.0) Anion Gap 7 MEQ/L (5-15) Blood Urea Nitrogen 19 MG/DL (7-18) Creatinine 0.89 MG/DL (0.60-1.30) Estimat Glomerular Filtration 82 ML/MIN (>89) Rate Random Glucose 101 MG/DL (74-106) Calcium Level 8.4 MG/DL (8.5-10.1) Result Diagram: 05/01/1754705/01/17547 Telemetry: NSR (1) Unstable angina pectoris Plan: Had rest pain prior to admit. Keep in hospital until revasc. Add IV heparin (2) 3-vessel CAD Plan: needs CABG. Target vessels acceptable (3) Abdominal aortic aneurysm (AAA) Plan: Less than 4 cm on last check (4) Hyperlipidemia Plan: Intolerant of Lipitor so will DC. Only tolerates Crestor 1x/week which is Mondays. Laura Bowers May 01, 2017 15:03
--- NOTE | 2017-05-01 15:09 | PD.CAR.PN ---
CVT Progress Note Subjective/Hospital Course: 82/ male hx of CAD c/o of chest discomfort, pt brought in outpt , underwent cardiac cath by Dr Morales , found to have multi vessel disease 50% Left Main, 70 % prox LAD, daig 80% CX 95%, OM 75% RCA 70% EF 50% pt has also been having chest pain at rest PMH: AAA, CAD, DJD, HLP, melanoma , PAD, prostate CA, PAD 05/01 pt c/o of pain at rest, decision to keep pt in hospital and undergo CABG on Thursday 05/03 sts data discussed with pt RISK SCORES About the STS Risk Calculator Procedure: CAB Only Risk of Mortality: 2.653% Morbidity or Mortality: 16.527% Long Length of Stay: 7.474% Short Length of Stay: 32.618% Permanent Stroke: 1.373% Prolonged Ventilation: 11.325% DSW Infection: 0.638% Renal Failure: 3.398% Reoperation: 6.402% Objective: Vital Signs Date Time Temp Pulse Resp B/P Pulse Ox O2 Delivery O2 Flow Rate FiO2 05/01/17 14:01 58 05/01/17 13:00 54 05/01/17 12:00 62 05/01/17 11:15 98.3 57 18 122/62 94 05/01/17 11:00 56 05/01/17 10:00 56 05/01/17 09:00 58 05/01/17 08:01 97.4 59 18 107/64 94 05/01/17 08:00 58 05/01/17 07:01 88 05/01/17 06:00 62 05/01/17 05:17 21 05/01/17 05:00 54 05/01/17 04:00 96.9 54 18 119/57 93 05/01/17 04:00 64 05/01/17 03:00 54 05/01/17 02:00 64 05/01/17 01:00 62 05/01/17 00:00 97.8 69 18 113/67 94 05/01/17 00:00 52 04/30/17 23:00 68 04/30/17 22:00 60 04/30/17 21:00 58 04/30/17 20:00 57 04/30/17 20:00 97.8 64 18 111/55 95 04/30/17 17:01 64 04/30/17 16:30 97.9 54 18 161/89 97 04/30/17 16:00 55 Labs: Laboratory Tests Test 05/01/17 05:48 White Blood Count 6.8 TH/MM3 (4.0-11.0) Red Blood Count 3.99 MIL/MM3 (4.50-5.90) Hemoglobin 12.7 GM/DL (13.0-17.0) Hematocrit 36.9 % (39.0-51.0) Mean Corpuscular Volume 92.4 FL (80.0-100.0) Mean Corpuscular Hemoglobin 31.8 PG (27.0-34.0) Mean Corpuscular Hemoglobin 34.5 % Concent (32.0-36.0) Red Cell Distribution Width 12.5 % (11.6-17.2) Platelet Count 183 TH/MM3 (150-450) Mean Platelet Volume 9.7 FL (7.0-11.0) Neutrophils (%) (Auto) 69.3 % (16.0-70.0) Lymphocytes (%) (Auto) 13.9 % (9.0-44.0) Monocytes (%) (Auto) 13.2 % (0.0-8.0) Eosinophils (%) (Auto) 2.9 % (0.0-4.0) Basophils (%) (Auto) 0.7 % (0.0-2.0) Neutrophils # (Auto) 4.7 TH/MM3 (1.8-7.7) Lymphocytes # (Auto) 0.9 TH/MM3 (1.0-4.8) Monocytes # (Auto) 0.9 TH/MM3 (0-0.9) Eosinophils # (Auto) 0.2 TH/MM3 (0-0.4) Basophils # (Auto) 0.0 TH/MM3 (0-0.2) CBC Comment DIFF FINAL Differential Comment Sodium Level 140 MEQ/L (136-145) Potassium Level 4.4 MEQ/L (3.5-5.1) Chloride Level 105 MEQ/L (98-107) Carbon Dioxide Level 28.5 MEQ/L (21.0-32.0) Anion Gap 7 MEQ/L (5-15) Blood Urea Nitrogen 19 MG/DL (7-18) Creatinine 0.89 MG/DL (0.60-1.30) Estimat Glomerular Filtration 82 ML/MIN (>89) Rate Random Glucose 101 MG/DL (74-106) Calcium Level 8.4 MG/DL (8.5-10.1) Result Diagram: 05/01/1754705/01/17547 (1) Unstable angina pectoris Plan: Had rest pain prior to admit. Keep in hospital until revasc. Add IV heparin (2) 3-vessel CAD Plan: needs CABG. Target vessels acceptable (3) Abdominal aortic aneurysm (AAA) Plan: Less than 4 cm on last check (4) Hyperlipidemia Plan: Intolerant of Lipitor so will DC. Only tolerates Crestor 1x/week which is Mondays. Laura Bowers May 01, 2017 15:09
[2017-05-01 17:57] LABS: APTT (PATIENT) 50.6 SEC (24.3-30.1)
[2017-05-02] VITALS (25 sets, daily range): BP systolic 136–169; BP diastolic 73–89; PULSE 49–110; RESP 16–18; TEMP 97.2–98.5; O2SAT 95–98
[2017-05-02 00:03] LABS: APTT (PATIENT) 34.4 SEC (24.3-30.1)
[2017-05-02] MEDS: ACETAMINOPHEN 325 MG TAB PO PRN (03:02)
[2017-05-02] MEDS: METOPROLOL TARTRATE 25 MG TAB PO SCH ×3 (05:41→22:00)
[2017-05-02] MEDS: NITROGLYCERIN 2% OINT 1 GM PACKET TOPICAL SCH ×4 (05:42→23:36)
[2017-05-02 05:58] LABS: APTT (PATIENT) 46.3 SEC (24.3-30.1)
--- NOTE | 2017-05-02 08:55 | PD.CARD.PN ---
Subjective Subjective Remarks no complaints Objective Medications Current Medications Medications (Trade) Dose Ordered Sig/Nikki Route Start Time Stop Time Status Last Admin (NS 1000 ml Inj) 1,000 ml @ 30 mls/hr Q24H IV 04/30/17 09:00 05/01/17 08:16 (Percocet 5-325 Mg) 1 tab Q4H PRN PO 04/30/17 11:45 (Zofran Inj) 4 mg Q4H PRN IV 04/30/17 11:45 (Ecotrin Ec) 81 mg DAILY PO 05/01/17 09:00 05/01/17 08:16 (Lopressor) 25 mg Q8HR PO 04/30/17 14:00 05/01/17 23:24 (Nitroglycerin 2% Oint) 1 inch Q6HR TOPICAL 04/30/17 12:00 05/02/17 05:42 Acetaminophen 650 mg 650 mg Q4H PRN PO 05/01/17 10:15 05/02/17 03:02 (Heparin-D5W Inj) 250 ml @ 0 mls/hr TITRATE IV 05/01/17 10:30 05/01/17 11:35 (NS Flush) 2 ml BID IV FLUSH 05/01/17 21:00 05/01/17 21:00 (NS Flush) 2 ml UNSCH PRN IV FLUSH 05/01/17 14:45 Vital Signs / I&O Vital Signs Date Time Temp Pulse Resp B/P Pulse Ox O2 Delivery O2 Flow Rate FiO2 05/02/17 07:44 69 05/02/17 06:00 54 05/02/17 05:00 49 05/02/17 04:00 54 05/02/17 03:00 97.4 57 16 152/76 95 05/02/17 03:00 60 05/02/17 02:00 57 05/02/17 01:00 55 05/02/17 00:00 68 05/01/17 23:10 97.9 62 16 139/72 95 05/01/17 23:00 69 05/01/17 22:00 66 05/01/17 21:00 56 05/01/17 20:00 54 05/01/17 19:50 97.6 58 18 143/77 95 05/01/17 19:00 56 05/01/17 18:00 54 05/01/17 17:01 56 05/01/17 16:00 54 05/01/17 15:15 98.1 54 18 124/66 94 05/01/17 15:00 55 05/01/17 14:01 58 05/01/17 13:00 54 05/01/17 12:00 62 05/01/17 11:15 98.3 57 18 122/62 94 05/01/17 11:00 56 05/01/17 10:00 56 05/01/17 09:00 58 I/O 05/01/17 05/01/17 05/01/17 05/02/17 05/02/17 05/02/17 07:00 15:00 23:00 07:00 15:00 23:00 Intake Total 1384 ml 1667 ml 590 ml Output Total 750 ml 1150 ml 1975 ml Balance 634 ml 517 ml -1385 ml Intake Oral 480 ml 600 ml 480 ml IV Total 904 ml 1067 ml 110 ml Output Urine Total 750 ml 1150 ml 1975 ml # Voids 4 # Bowel Movements 0 0 Physical Exam GENERAL: Well developed, well nourished. No acute distress. HEENT: Jugular venous pressure is normal. CHEST: Lungs clear to auscultation bilaterally. Unlabored respiratory effort. CARDIAC: Regular rate and rhythm without S3, S4, or murmur. ABDOMEN: Soft, nontender, no hepatosplenomegaly. Bowel sounds present. EXTREMITIES: No clubbing, cyanosis, or edema. Right groin OK Laboratory Laboratory Tests Test 05/01/17 05/01/17 05/01/17 05/02/17 16:21 17:26 23:38 00:35 Nasal Screen MRSA (PCR) MRSA NOT DETECTED Activated Partial 50.6 SEC 34.4 SEC Thromboplast Time Blood Type O POSITIVE Crossmatch Leukocyte-Reduced Red Blood Cells Blood Bank Comment Test 05/02/17 05:29 Activated Partial 46.3 SEC Thromboplast Time Assessment and Plan Problem List: (1) Unstable angina pectoris Assessment and Plan: Stable on IV heparin and BB/NTP (2) 3-vessel CAD Assessment and Plan: CABG indicated (3) Abdominal aortic aneurysm (AAA) (4) Hyperlipidemia Assessment and Plan CABG tomorrow Elvin Morales MD May 02, 2017 08:55
[2017-05-02] MEDS: SODIUM CHLORIDE 0.9% FLUSH 10 ML FLUSH IV FLUSH SCH ×2 (09:00→21:21)
[2017-05-02] MEDS: NS 1000P @30 MLS/HR (KVO) IV SCH (09:00)
[2017-05-02] MEDS: ASPIRIN EC 81 MG TABEC PO SCH (09:00)
[2017-05-02] MEDS: HEPARIN-D5W INJ 250 ML IV SCH (09:51)
[2017-05-02 14:01] LABS: APTT (PATIENT) 44.2 SEC (24.3-30.1)
--- NOTE | 2017-05-02 15:04 | PD.CAR.PN ---
CVT Progress Note Subjective/Hospital Course: 82/ male hx of CAD c/o of chest discomfort, pt brought in outpt , underwent cardiac cath by Dr Morales , found to have multi vessel disease 50% Left Main, 70 % prox LAD, daig 80% CX 95%, OM 75% RCA 70% EF 50% pt has also been having chest pain at rest PMH: AAA, CAD, DJD, HLP, melanoma , PAD, prostate CA, PAD 05/01 pt c/o of pain at rest, decision to keep pt in hospital and undergo CABG on 05/03 no complaints of chest pain for surgery in am Objective: GENERAL: SKIN: Warm and dry. HEAD: Normocephalic. EYES: No scleral icterus. No injection or drainage. NECK: Supple, trachea midline. No JVD or lymphadenopathy. CARDIOVASCULAR: Regular rate and rhythm without murmurs, gallops, or rubs. RESPIRATORY: Breath sounds equal bilaterally. No accessory muscle use. GASTROINTESTINAL: Abdomen soft, non-tender, nondistended. MUSCULOSKELETAL: No cyanosis, or edema. BACK: Nontender without obvious deformity. No CVA tenderness. Vital Signs Date Time Temp Pulse Resp B/P Pulse Ox O2 Delivery O2 Flow Rate FiO2 05/02/17 14:10 61 05/02/17 13:38 64 05/02/17 12:38 97.2 110 18 136/74 98 05/02/17 12:34 58 05/02/17 11:25 68 05/02/17 10:19 58 05/02/17 09:38 58 05/02/17 09:38 98.0 58 18 138/74 97 05/02/17 07:44 69 05/02/17 06:00 54 05/02/17 05:00 49 05/02/17 04:00 54 05/02/17 03:00 97.4 57 16 152/76 95 05/02/17 03:00 60 05/02/17 02:00 57 05/02/17 01:00 55 05/02/17 00:00 68 05/01/17 23:10 97.9 62 16 139/72 95 05/01/17 23:00 69 05/01/17 22:00 66 05/01/17 21:00 56 05/01/17 20:00 54 05/01/17 19:50 97.6 58 18 143/77 95 05/01/17 19:00 56 05/01/17 18:00 54 05/01/17 17:01 56 05/01/17 16:00 54 05/01/17 15:15 98.1 54 18 124/66 94 Labs: Laboratory Tests Test 05/02/17 05/02/17 05:29 13:20 Activated Partial 46.3 SEC 44.2 SEC Thromboplast Time (24.3-30.1) (24.3-30.1) Result Diagram: 05/01/17 0548 05/01/17 0548 Telemetry: NSR (1) Unstable angina pectoris Plan: Stable on IV heparin and BB/NTP (2) 3-vessel CAD Plan: CABG tomorrow (3) Abdominal aortic aneurysm (AAA) (4) Hyperlipidemia Laura Bowers May 02, 2017 15:04
--- NOTE | 2017-05-02 15:11 | HHI.FF ---
Face to Face Verification Diagnosis: (1) Unstable angina pectoris (2) Hyperlipidemia (3) 3-vessel CAD (4) Abdominal aortic aneurysm (AAA) Physical Therapy Order: Evaluate and Treat Home Health Nursing Order: Signs/symptoms of disease process Wound care and dressing changes Nursing assessment with vital signs Instructions: Heart and Vascular Surgery patients *Special attention to sternal dressing Mandatory frequency Assess and evaluation, 4 days in a row The next week 3X week 2 times a week for 4 weeks 1 time a week for 5 weeks Schedule Heart and Vascular patients for full 60 day certification period Initial visit Review Open Heart Surgery Discharge Instructions (Sternal precautions, Activity, Elastic hose, Incision care, Driving, Incentive spirometry, Smoking, [place], Work and other) Need Betadine to paint incision Medication reconciliation Importance of follow up care/ check on appointments Make calendar record temperature daily When to call [facility] nurse, review instructions, phone list Incentive Spirometry, demonstration Visit 1- Begin discharge instruction for patient family and/ or caregiver using teach back method- Signs and symptoms of infection Disease characteristics Medicines and side effects Foods and nutrition/ appetite Infection control/ hand washing/ hygiene Visit 2- Continue teaching Discharge instructions- include additional information on smoking cessation , sternal dressing (sternal vac) Visit 3- Continue teaching- Cough and deep breathing, incision monitoring. Choose my plate Visit 4- Continue teaching- Discuss limitations Discuss how they are feeling Discuss progress toward goals Remaining visits- continue teaching and monitoring PREVENA Single Use Negative Wound Therapy System Caregiver Instruction Sheet 1. A Prevena dressing system was applied to the chest incision during surgery , to promote wound healing. It works via a suction device (negative pressure wound therapy) to remove low to moderate levels of exudate (drainage) and infectious materials. We recommend that the device stay in place for up to seven days, from day of surgery. 2. Day of Surgery___/ Day of Removal / 3. The dressing should only be removed by a health care analyst. Please arrange removal of device to coincide with Home Health visit and or with Nursing staff at Rehab 4. If skin reddening or irritation of skin occurs, or excessive drainage, please notify the Cardiovascular Surgeons office at [phone]. 5. Light showering is permissible; however the pump should be disconnected and placed in safe location, where it will not get wet. The dressing should not be exposed to direct spray or submerged in water. No bath tub / shower only. Ensure the end of the tubing attached to the dressing is facing down so that water does not enter the top of the tube. 6. To remove Prevena dressing: press purple button to turn off device / remove the suction. Then disconnect the tubing from the pump. The fixation strips should be stretched away from the skin and the dressing lifted at one corner and peeled back until it has been fully removed. 7. After removal, it is ok to shower daily using liquid dial soap and clean wash cloth, rinse and pat dry, and leave incision open to air dry. For any concerns regarding Prevena dressing, and or wounds, please contact Elizabeth Meza, patient navigator at [phone] or notify the Cardiovascular Surgeons office at [phone]. Incentive spirometry Q1 hr x 10, while awake, also use acapella device hourly whole awake Sternal Breast Bone Precautions: NO pushing or pulling, ( pt must use sternal pillow to support chest with all activities and with coughing ( takes up to 3 months breast bone to heal ) Daily incision care: ok to shower daily, no tub bath. Wash all incisions with liquid dial soap, clean wash cloth to each site, rinse and pat dry. Observe for any signs of infection, such as drainage which is dark yellow, cruz, green or foul smelling. Immediately report to the surgeon any drainage from the chest incision, or legs, and for any abnormal drainage from the chest tube sites. Notify surgeon if any temp >101.5 degrees F. When specialty dressing removed/ or if you do not have one, continue to shower daily as above, then rinse and pat incision dry and paint with betadine daily x 5 days. Allow steri strips to fall off if you have any. Avoid lotions, creams, salves, oils, etc. for the first month Please see attached forms for additional instructions regarding post Open Heart specialty wound vacuum dressings. DANIEL or Prevena , Dressing to be removed by Nursing staff on __05/10/[address] Herrera patients , please obtain CBC, BMP, PA & Lat CXR in 2 weeks, results to Dr. Herrera ( prescription will be given) ( ) (Tele: [phone]) , F/U appointment: as per DC instructions: PCP in 2 weeks, CV surgeon 2 weeks, [employer]er [employer] 3-4 weeks For any questions regarding incisions/ dressing / meds / post op care or above Symptoms, Friday 8am-5pm Heart & Vascular Surgery Office ( Dr. Gray & Dr. Herrera), After Hours / Nights (5pm -8am) Weekends and Holidays Please call [facility] Cardiac [facility] (C[facility]) Charge Nurse I have seen patient Juan Alberto Garcia on 05/02/17. My clinical findings support the need for the requested home health care services because: Deconditioned w/ increased weakness I certify that my clinical findings support that this patient is homebound because: Post-op weakness Laura Bowers May 02, 2017 15:11
[2017-05-02] MEDS ORDERED: POVIDONE IODINE 5% (ANTISEPSIS KIT) 4 APPLICATIONS EACH NARE PRN (23:45)
[2017-05-02] MEDS ORDERED: CHLORHEXIDINE GLUCONATE 2 % 1 PACK (2 CLOTHS) TOPICAL PRN (23:45)
[2017-05-02] MEDS ORDERED: INSULIN HUMAN REGULAR 1,000 UNITS/10 ML VIAL SQ PRN (23:45)
[2017-05-02] MEDS ORDERED: SODIUM CHLORID 0.9% 500 ML IV PRN (23:45)
[2017-05-02] MEDS ORDERED: LACTATED RINGER'S 1000 ML IV PRN (23:45)
[2017-05-03] VITALS (20 sets, daily range): BP systolic 90–160; BP diastolic 47–96; PULSE 54–80; RESP 16–21; TEMP 95.2–98.2; O2SAT 94–99
[2017-05-03] MEDS ORDERED: SODIUM BICARBONATE 8.4% INJ 50 MEQ/50 ML SYR IV ONE (05:00)
[2017-05-03] MEDS ORDERED: PHENYLEPHRINE HCL 10 MG/ML VIAL IV ONE (05:00)
[2017-05-03] MEDS ORDERED: EPINEPHrine HCL (1:1000) 1 MG/ML VIAL IV ONE (05:00)
[2017-05-03] MEDS ORDERED: PROTAMINE SULFATE 250 MG/25 ML VIAL IV ONE ×2 (05:00→13:12)
[2017-05-03] MEDS ORDERED: ARTIFICIAL TEARS OPTH OINT 3.5 APPLIC/3.5 GM TUBO ONE (05:00)
[2017-05-03] MEDS ORDERED: AMINOCAPROIC ACID INJ 250 MG/ML 20 ML VIAL IV ONE ×2 (05:00→13:11)
[2017-05-03] MEDS ORDERED: VECURONIUM BROMIDE 10 MG VIAL IV ONE ×2 (05:00→13:12)
[2017-05-03] MEDS ORDERED: GLYCOPYRROLATE 0.2 MG/ML VIAL IV ONE (05:00)
[2017-05-03] MEDS ORDERED: MAGNESIUM SULFATE 1000 MG/2 ML VIAL (PED) IV ONE (05:00)
[2017-05-03] MEDS ORDERED: AMIODARONE HCL 150 MG/3 ML VIAL IV ONE (05:00)
[2017-05-03] MEDS ORDERED: CALCIUM CHLORIDE 10% SOLN 1 GRAM/10 ML SYR IV ONE (05:00)
[2017-05-03] MEDS ORDERED: HEPARIN SODIUM - SQ 10,000 UNITS/ML VIAL SQ ONE (05:00)
[2017-05-03] MEDS ORDERED: NITROGLYCERIN-DEXTROSE INJ 250 ML IV ONE (05:00)
[2017-05-03] MEDS: METOPROLOL TARTRATE 25 MG TAB PO SCH (05:22)
[2017-05-03] MEDS: NITROGLYCERIN 2% OINT 1 GM PACKET TOPICAL SCH (05:25)
[2017-05-03 05:52] LABS: APTT (PATIENT) 45.3 SEC (24.3-30.1)
[2017-05-03] MEDS ORDERED: VANCOMYCIN HCL 1000 MG VIAL ONE (06:39)
[2017-05-03] MEDS ORDERED: HEPARIN SODIUM - SQ 10,000 UNITS/ML VIAL ONE (06:39)
[2017-05-03] MEDS ORDERED: methylPREDNISolone SOD SUCC 125 MG/2 ML VIAL ONE (06:40)
[2017-05-03] MEDS ORDERED: ceFAZolin 2 GM PREMIX 50 ML ONE (06:40)
[2017-05-03] MEDS ORDERED: CARDIOPLEGIC IRR 1,000 ML ONE (06:52)
[2017-05-03] MEDS ORDERED: POTASSIUM CHLORIDE 40 MEQ/20 ML VIAL ONE (06:53)
[2017-05-03] MEDS ORDERED: ALBUMIN HUMAN 25% 12.5 GM/50 ML BAGP IV ONE (06:53)
[2017-05-03] MEDS ORDERED: HEPARIN SODIUM - IV 10,000 UNITS/10 ML VIAL ONE (06:53)
[2017-05-03] MEDS ORDERED: MANNITOL INJ 50 ML ONE (06:54)
[2017-05-03] MEDS ORDERED: ceFAZolin INJ 1,000 MG VIAL IV ONE (08:18)
[2017-05-03] MEDS ORDERED: ceFAZolin INJ 1,000 MG VIAL ONE (12:09)
[2017-05-03] MEDS ORDERED: LACTATED RINGER'S 1000 ML INJ 500 ML IV PRN (12:43)
[2017-05-03] MEDS ORDERED: ALBUMIN HUMAN 5% 12.5 GM/250 ML BOTTLE IV PRN (12:45)
[2017-05-03] MEDS ORDERED: POTASSIUM CHLOR 20 MEQ PREMIX 100 ML IV PRN ×2 (12:45)
[2017-05-03] MEDS ORDERED: ACETAMINOPHEN 325 MG TAB PO PRN (12:45)
[2017-05-03] MEDS ORDERED: hydrALAZINE HCL 20 MG/ML VIAL IV PRN (12:45)
[2017-05-03] MEDS ORDERED: POTASSIUM CHLORIDE 20 MEQ CONTROLLED RELEASE TAB PO PRN ×2 (12:45)
[2017-05-03] MEDS ORDERED: ACETAMINOPHEN 1000 MG/100 ML VIAL IV ONE (12:45)
[2017-05-03] MEDS ORDERED: ACETAMINOPHEN 650 MG SUPP RECTAL PRN (12:45)
[2017-05-03] MEDS ORDERED: RESP: ALBUTEROL 2.5 MG/IPRATROPIUM 0.5 MG NEB (PRN) NEB (12:45)
[2017-05-03] MEDS ORDERED: METOPROLOL TARTRATE 5 MG/5 ML VIAL IV PUSH PRN (12:45)
[2017-05-03] MEDS ORDERED: RESP: RACEPINEPHRINE 2.25% 0.5 ML NEB NEB PRN (12:45)
[2017-05-03] MEDS ORDERED: CLEVIDIPINE INJ 50 ML IV SCH (12:45)
[2017-05-03] MEDS ORDERED: MORPHINE SULFATE 4 MG/ML INJ IV PRN (12:45)
[2017-05-03] MEDS ORDERED: DEXTROSE 50% IN WATER 50 ML VIAL(D50) IV PUSH PRN (12:45)
[2017-05-03] MEDS ORDERED: CALCIUM CHLORIDE 10% 1 GRAM/10 ML VIAL IV PRN (12:45)
[2017-05-03] MEDS ORDERED: MAGNESIUM SULFATE INJ 2 GM in SODIUM CHLORIDE 0.9% INJ 100 ML IV PRN ×4 (12:45)
[2017-05-03] MEDS ORDERED: INSULIN REGULAR (IV INFUSION) 100 UNITS in SODIUM CHLORIDE 0.9% INJ 99 ML IV SCH (12:45)
[2017-05-03] MEDS ORDERED: CALCIUM CHLORIDE INJ 1 GM in SODIUM CHLORIDE 0.9% INJ 100 ML IV PRN (12:45)
[2017-05-03] MEDS ORDERED: ONDANSETRON HCL 4 MG/2 ML VIAL IV PUSH PRN (12:45)
[2017-05-03] MEDS ORDERED: MEPERIDINE HCL 25 MG/ML VIAL IV PRN (12:45)
[2017-05-03] MEDS ORDERED: Post-op Orders (for Pharmacy) MISC OTHER ONE (12:45)
[2017-05-03] MEDS ORDERED: SUGAMMADEX SODIUM 200 MG/2 ML VIAL IV PUSH ONE ×2 (12:45)
--- NOTE | 2017-05-03 13:00 | PD.OP ---
cc: Edwige Herrera MD; Elvin Morales MD Operative Report Date of Surgery: May 03, 2017 Preoperative Diagnosis: (1) Unstable angina pectoris (2) 3-vessel CAD Postoperative Diagnosis: same Procedure: CABG x 3 VOGEL to LAD - good, intramyocardial SVG to OM - good, intramyocardial SVG to PDA - poor, intramyocardial Pericardial biopsy EVH Anesthesia: Dr. Giron Surgeon: Edwige Herrera Passenger Vessel Chef(s): JESSICA Crowell Operation and Findings: The risks, benefits, complications, treatment options, and expected outcomes were discussed with the patient. The possibilities of reaction to medication, pulmonary aspiration, perforation of viscus, bleeding, recurrent infection, the need for additional procedures, failure to diagnose a condition, and creating a complication requiring transfusion or operation were discussed with the patient. The patient concurred with the proposed plan, giving informed consent. The site of surgery properly noted/marked. The patient was taken to Operating Room, identified as Juan Alberto Garcia and the procedure verified as CABG, EVH. A Time Out was held and the above information confirmed. Standard monitoring lines and Corbin catheter were placed. General anesthesia was induced. The patient was prepped and draped in a sterile fashion. A median sternotomy was performed and electrocautery was used to obtain hemostasis. The left internal mammary artery was procured as a pedicle from the 7th rib to the 1st rib in the usual manner. Simultaneously left greater saphenous vein was procured from the left leg using a minimally invasive endoscopic technique. The vein was prepared for anastomosis and the leg wound was irrigated and closed in 2 layers. The pericardium was opened and dense inflammation as wellas adhesions were encountered involving the heart. There were also calcified areas of the pericardium involving the heart. A biopsy of the pericardium was submitted to pathology. A pericardial sling was created using interrupted 0 silk sutures. The patient was heparinized for cardiopulmonary bypass and the distal mammary pedicle was instrumented for anastomosis. The heart was instrumented for cardiopulmonary bypass in the usual manner. Division of adhesions was performed both off and on pump. Antegrade blood cardioplegia was employed. The patient was placed on cardiopulmonary bypass. An aortic cross-clamp was applied and the heart was arrested using cold blood cardioplegia. Antegrade cardioplegia was administered after he each anastomosis or at least at 20 minute intervals. All distal targets were intramyocardial and difficult to isolate. After adequate arrest, the PDA was opened with a Bill Moore'S Slough blade and found to be a 1 millimeter poor target. Saphenous vein was approximated to the PDA artery using a running 7 0 Prolene suture. The graft was measured for length and orientation and the proximal anastomosis was constructed to the ascending aorta using a running 5 0 Prolene suture after creating an aortotomy with a 5 millimeter punch. The 1st circumflex marginal artery was then opened with a Bill Moore'S Slough blade and found to be a 1.5 millimeter good target. Saphenous vein was approximated to the OM1 artery using a running 7 0 Prolene suture. The graft was measured for length and orientation and was suspended from the pericardium. The distal LAD was opened with a Bill Moore'S Slough blade and found to be a 1.5 millimeter good target. The left internal mammary artery was approximated to the LAD using a running 7 0 Prolene suture. The pedicle was attached to the epicardium using interrupted 5 0 silk suture. The patient was systemically rewarmed and received a hotshot dose of warm blood cardioplegia. The aorta was vented and the proximal anastomosis to the OM1 graft was accomplished using a running 5 0 Prolene suture after creating an aortotomy was a 5 millimeter punch. The cross-clamp was removed and all proximal and distal anastomoses were examined for hemostasis. The patient was weaned from cardiopulmonary bypass. Protamine was given. There was no adverse reaction. Decannulation was carried out without incident. Wound was checked for hemostasis which was obtained using electrocautery. A 36 Setswana mediastinal and 32 Setswana left pleural chest was were placed and secured to the skin with 0 silk suture. The sternum was closed with stainless steel wire. The fascia was closed with 1. PDS. The subcutaneous tissue was closed using a running 2-0 Vicryl suture. The skin was closed with 4-0 Monocryl. Sterile dressings were placed. At the end of the operation, all sponge, instruments, and needle counts were correct. The patient was transferred to the CICU in stable condition. Findings: Dense pericardial inflammation with adhesions to the heart. Intramyocardial distal targets Calcification of portions of the pericardium. XC: 100 min CPB: 135 min Drains: mediastinal x 1 pleural x 1 Specimens: pericardium Complications: none Disposition: to CVICU in stable, but guarded condition Condition: stable Edwige Herrera MD May 03, 2017 13:00
[2017-05-03] MEDS ORDERED: POTASSIUM CHLOR 40 MEQ PREMIX 100 ML ONE (13:03)
[2017-05-03] MEDS ORDERED: HEPARIN - 10,000 UNITS/ML IV ADDITIVE IV ONE (13:11)
[2017-05-03] MEDS ORDERED: ePHEDrine/NS 25 MG/5 ML SYR IV ONE (13:12)
[2017-05-03] MEDS ORDERED: SODIUM CHLOR 0.9% 250 ML INJ 500 ML IV ONE (13:13)
[2017-05-03] MEDS ORDERED: SODIUM CHLORIDE 0.9% INJ 200 ML IV ONE (13:13)
[2017-05-03] MEDS: ACETAMINOPHEN 1000 MG/100 ML VIAL IV SCH (13:45)
[2017-05-03] MEDS: AMIODARONE 200 MG TAB PO SCH ×2 (14:00→21:22)
--- NOTE | 2017-05-03 14:17 | RADRPT ---
EXAM DATE/TIME: 05/03/2017 13:47 [facility] COMPARISON: CHEST PA & LAT, April 30, 2017, 18:14. INDICATIONS : Post op CABG MEDICAL HISTORY : Hypercholesterolemia. Carcinoma, prostate. Carcinoma, skin. SURGICAL HISTORY : Hiatal hernai repair. Prostate surgery. Skin cancer removal. ENCOUNTER: Initial ACUITY: 1 day PAIN SCORE: Non-responsive. LOCATION: Bilateral chest FINDINGS: Right IJ line is present with tip overlapping the expected region of the SVC. Chest tube is present o n the left side. ET tube is present with tip overlapping approximately 4 cm above the william. NG tube is present with tip in the stomach. No definite pneumothorax is seen for technique. The lungs are cl ear without infiltrate, nodule, or mass. There is no appreciable pleural effusion for technique. He art and mediastinum are unremarkable. CONCLUSION: No acute cardiopulmonary disease. Shane Mendez MD on May 03, 2017 at 14:15 Board Certified Radiologist. This report was verified electronically.
[2017-05-03] MEDS ORDERED: fentaNYL CITRATE 1000 MCG/20 ML VIAL ONE (14:51)
[2017-05-03] MEDS ORDERED: MIDAZOLAM HCL 5 MG/5 ML VIAL ONE (14:52)
[2017-05-03] MEDS ORDERED: SODIUM BICARBONATE 8.4% INJ 50 ML ONE (14:54)
[2017-05-03] MEDS: POTASSIUM CHLOR 20 MEQ PREMIX 100 ML IV PRN ×2 (16:00→18:18)
[2017-05-03] MEDS ORDERED: SODIUM BICARBONATE 8.4% SOLN 50 MEQ/50 ML VIAL IV PUSH ONE ×2 (16:00→17:15)
[2017-05-03] MEDS: RESP: ALBUTEROL 2.5 MG/IPRATROPIUM 0.5 MG NEB (SCH) NEB ×2 (17:04→21:47)
[2017-05-03] MEDS: SODIUM CHLORIDE 0.9% FLUSH 10 ML FLUSH IV FLUSH SCH (19:59)
[2017-05-03] MEDS: oxyCODONE/ACETAMINOPHEN 5 MG/325 MG TAB PO PRN (22:10)
[2017-05-04] VITALS (16 sets, daily range): BP systolic 113–157; BP diastolic 53–80; PULSE 70–96; RESP 15–20; TEMP 97.6–98.9; O2SAT 93–99
[2017-05-04] MEDS: ACETAMINOPHEN 1000 MG/100 ML VIAL IV SCH ×2 (00:15→05:54)
[2017-05-04 04:37] LABS: HEMATOCRIT 33.6 % (39.0-51.0); MEAN CORPUSCULAR HEMOGLOBIN 31.2 PG (27.0-34.0); MEAN CORPUSCULAR HGB CONC 33.5 % (32.0-36.0); PLATELET COUNT 131 TH/MM3 (150-450); RED BLOOD COUNT 3.62 MIL/MM3 (4.50-5.90); RED CELL DISTRIBUTION WIDTH 12.7 % (11.6-17.2); REVIEW FLAG FINAL; WHITE BLOOD COUNT 15.8 TH/MM3 (4.0-11.0)
[2017-05-04] MEDS: RESP: ALBUTEROL 2.5 MG/IPRATROPIUM 0.5 MG NEB (SCH) NEB ×4 (04:50→21:21)
[2017-05-04 04:52] LABS: BICARBONATE 26.3 MEQ/L (21.0-32.0); MAGNESIUM 1.8 MG/DL (1.5-2.5); POTASSIUM 3.9 MEQ/L (3.5-5.1)
[2017-05-04] MEDS: AMIODARONE 200 MG TAB PO SCH ×3 (05:55→21:04)
[2017-05-04] MEDS: PANTOPRAZOLE SOD 40 MG DELAYED RELEASE TAB PO SCH (05:55)
--- NOTE | 2017-05-04 06:24 | RADRPT ---
EXAM DATE/TIME: 05/04/2017 04:11 [facility] COMPARISON: CHEST SINGLE AP, May 03, 2017, 13:47. INDICATIONS : Shortness of breath post CABG MEDICAL HISTORY : Hypercholesterolemia. Carcinoma, prostatic. SURGICAL HISTORY : CABG. Hiatal hernia repair ENCOUNTER: Subsequent ACUITY: 2 days PAIN SCORE: 8/10 LOCATION: Bilateral chest FINDINGS: There has been interval extubation and removal of nasogastric tube. Right neck central line and thora costomy tubes remain in place. There is slight atelectasis at the left lung base. Cardiac contours ar e stable and satisfactory. CONCLUSION: Interval extubation. Mild left base atelectasis. Eder Espinoza MD on May 04, 2017 at 6:21 Board Certified Radiologist. This report was verified electronically.
[2017-05-04] MEDS: SODIUM CHLORIDE 0.9% FLUSH 10 ML FLUSH IV FLUSH SCH ×2 (09:09→21:00)
[2017-05-04] MEDS: ASPIRIN 81 MG CHEW TAB PO SCH (09:09)
--- NOTE | 2017-05-04 10:53 | PD.CAR.PN ---
CVT Progress Note CVT: POD #: 1 Subjective/Hospital Course: 82/ male hx of CAD c/o of chest discomfort, pt brought in outpt , underwent cardiac cath by Dr Morales , found to have multi vessel disease 50% Left Main, 70 % prox LAD, daig 80% CX 95%, OM 75% RCA 70% EF 50% pt has also been having chest pain at rest PMH: AAA, CAD, DJD, HLP, melanoma , PAD, prostate CA, PAD 05/01 pt c/o of pain at rest, decision to keep pt in hospital and undergo CABG on 05/03 no complaints of chest pain for surgery in am 05/04/17 No complaints. Doing well. Objective: Vital Signs Date Time Temp Pulse Resp B/P Pulse Ox O2 Delivery O2 Flow Rate FiO2 05/04/17 09:46 96 Nasal Cannula 2.00 05/04/17 08:15 98.6 76 18 113/63 93 125/55 05/04/17 08:15 93 Nasal Cannula 2.00 Humidified 05/04/17 07:00 75 05/04/17 03:02 97 Nasal Cannula 3.00 Humidified 05/04/17 03:02 98.0 81 15 125/67 97 126/57 05/04/17 03:02 76 05/03/17 23:19 76 05/03/17 23:19 98.2 80 16 114/83 96 125/63 05/03/17 23:19 96 Nasal Cannula 3.00 Humidified 05/03/17 21:47 97 Nasal Cannula 3.00 05/03/17 19:17 98.1 70 16 107/66 97 128/61 05/03/17 19:17 97 Nasal Cannula 5.00 Humidified 05/03/17 19:00 74 05/03/17 18:10 95 Nasal Cannula 5.00 05/03/17 18:10 95 Nasal Cannula 5.00 05/03/17 18:10 95 Nasal Cannula 5 05/03/17 17:55 98 40 05/03/17 15:30 40 05/03/17 15:30 95.2 68 20 96/50 98 109/54 05/03/17 15:30 98 Mechanical Ventilator 40 05/03/17 15:00 60 05/03/17 14:45 98 Mechanical Ventilator 40 05/03/17 14:45 40 05/03/17 14:30 95.8 05/03/17 14:30 95.8 05/03/17 14:04 97 50 05/03/17 14:00 99 Mechanical Ventilator 50 05/03/17 14:00 50 05/03/17 13:50 98 60 05/03/17 13:46 60 05/03/17 13:46 97.6 68 21 90/50 99 99/47 Labs: Laboratory Tests Test 05/04/17 04:02 White Blood Count 15.8 TH/MM3 (4.0-11.0) Red Blood Count 3.62 MIL/MM3 (4.50-5.90) Hemoglobin 11.3 GM/DL (13.0-17.0) Hematocrit 33.6 % (39.0-51.0) Mean Corpuscular Volume 93.0 FL (80.0-100.0) Mean Corpuscular Hemoglobin 31.2 PG (27.0-34.0) Mean Corpuscular Hemoglobin 33.5 % Concent (32.0-36.0) Red Cell Distribution Width 12.7 % (11.6-17.2) Platelet Count 131 TH/MM3 (150-450) Mean Platelet Volume 9.4 FL (7.0-11.0) Sodium Level 145 MEQ/L (136-145) Potassium Level 3.9 MEQ/L (3.5-5.1) Chloride Level 109 MEQ/L (98-107) Carbon Dioxide Level 26.3 MEQ/L (21.0-32.0) Anion Gap 10 MEQ/L (5-15) Blood Urea Nitrogen 12 MG/DL (7-18) Creatinine 0.65 MG/DL (0.60-1.30) Estimat Glomerular Filtration 117 ML/MIN Rate (>89) Random Glucose 130 MG/DL (74-106) Calcium Level 8.3 MG/DL (8.5-10.1) Magnesium Level 1.8 MG/DL (1.5-2.5) Result Diagram: 05/04/1740105/04/17 040 Imaging: Last 24 hours Impressions Chest X-Ray 05/04/17 0500 Signed Impressions: Service Date/Time: Thursday, May 04, 2017 04:11 - CONCLUSION: Interval extubation. Mild left base atelectasis. Eder Espinoza MD Cardiovascular: RRR Telemetry: NSR Pulmonary: CTA GI/: NABS Incision: dry and intact CT: ~350ml since OR Plan: Transfer to stepdown Diurese Encourage ambulation, up to chair Advance diet Remove Corbin Cont chest tubes (1) Unstable angina pectoris Plan: Stable on IV heparin and BB/NTP (2) 3-vessel CAD Plan: CABG tomorrow (3) Abdominal aortic aneurysm (AAA) (4) Hyperlipidemia Edwige Herrera MD May 04, 2017 10:53
[2017-05-04] MEDS ORDERED: GLUCAGON 1 MG/ML VIAL OTHER PRN (11:00)
[2017-05-04] MEDS ORDERED: BISACODYL 10 MG SUPP RECTAL PRN (11:00)
[2017-05-04] MEDS ORDERED: SOD PHOSPHATE/SOD BIPHOSPHATE (ADULT) ENEMA 133ML RECTAL PRN (11:00)
[2017-05-04] MEDS ORDERED: DEXTROSE 50% IN WATER 50 ML VIAL(D50) IV PRN (11:00)
[2017-05-04] MEDS: MAGNESIUM HYDROXIDE SUSP 30 ML CUP PO SCH (12:52)
[2017-05-04] MEDS: FUROSEMIDE 40 MG/4 ML VIAL IV PUSH SCH (12:56)
[2017-05-04] MEDS: INSULIN ASPART SUPPLEMENTAL SCALE SQ SCH ×3 (14:08→21:13)
[2017-05-04] MEDS: SENNOSIDES 8.6 MG TAB PO SCH (21:04)
[2017-05-04] MEDS: DOCUSATE SODIUM 100 MG CAP PO SCH (21:04)
[2017-05-05] VITALS (28 sets, daily range): BP systolic 116–128; BP diastolic 66–75; PULSE 60–84; RESP 16–20; TEMP 98.1–98.9; O2SAT 89–96
[2017-05-05] MEDS: INSULIN ASPART SUPPLEMENTAL SCALE SQ SCH ×5 (02:00→21:34)
[2017-05-05] MEDS: oxyCODONE/ACETAMINOPHEN 5 MG/325 MG TAB PO PRN ×2 (02:41→21:40)
[2017-05-05] MEDS: PANTOPRAZOLE SOD 40 MG DELAYED RELEASE TAB PO SCH (05:32)
[2017-05-05] MEDS: AMIODARONE 200 MG TAB PO SCH ×4 (05:32→23:16)
[2017-05-05 06:24] LABS: HEMATOCRIT 28.7 % (39.0-51.0); MEAN CELL VOLUME 93.6 FL (80.0-100.0); MEAN CORPUSCULAR HEMOGLOBIN 32.4 PG (27.0-34.0); MEAN CORPUSCULAR HGB CONC 34.6 % (32.0-36.0); PLATELET COUNT 122 TH/MM3 (150-450); RED BLOOD COUNT 3.06 MIL/MM3 (4.50-5.90); RED CELL DISTRIBUTION WIDTH 12.7 % (11.6-17.2); WHITE BLOOD COUNT 19.5 TH/MM3 (4.0-11.0)
[2017-05-05 06:40] LABS: MAGNESIUM 2.1 MG/DL (1.5-2.5)
[2017-05-05 06:42] LABS: HEMO FLAGS AUTO DIFF
[2017-05-05] MEDS: RESP: ALBUTEROL 2.5 MG/IPRATROPIUM 0.5 MG NEB (SCH) NEB ×2 (07:46→10:56)
[2017-05-05 08:35] LABS: BANDS 11 % (0-6); NEUTROPHIL # MANUAL DIFF 18.5 TH/MM3 (1.8-7.7); POLYS (SEG NEUTROPHILS) 84 % (16-70); WBC DIFF SAMPLE 100
[2017-05-05 08:36] LABS: PLATELET ESTIMATE SMEAR LOW (NORMAL); PLATELET MORPHOLOGY NORMAL (NORMAL); SCAN/DIFF FINAL DIFF MANUAL
[2017-05-05] MEDS: POLYETHYLENE GLYCOL 17 GM PKG PO SCH (09:41)
[2017-05-05] MEDS: MAGNESIUM HYDROXIDE SUSP 30 ML CUP PO SCH (09:41)
[2017-05-05] MEDS: FUROSEMIDE 40 MG/4 ML VIAL IV PUSH SCH ×2 (09:42→21:34)
[2017-05-05] MEDS: MULTIVITAMINS/MINERALS THERAPEUTIC TAB PO SCH (09:42)
[2017-05-05] MEDS: DOCUSATE SODIUM 100 MG CAP PO SCH ×2 (09:42→21:33)
[2017-05-05] MEDS: ASPIRIN 81 MG CHEW TAB PO SCH (09:43)
[2017-05-05] MEDS: SODIUM CHLORIDE 0.9% FLUSH 10 ML FLUSH IV FLUSH SCH ×2 (11:54→21:33)
--- NOTE | 2017-05-05 12:14 | RSPPFT ---
DATE OF PROCEDURE: 05/01/17 COMMENTS: Spirometry with FVC of 2.7 predicted 4.4, FEV1 of 2.1 predicted 3.1, FEV1/FVC ratio 79% predicted 70%. The flow volume loop is less than optimal. 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
--- NOTE | 2017-05-05 13:35 | PD.CAR.PN ---
CVT Progress Note CVT: POD #: 2 Subjective/Hospital Course: 82/ male hx of CAD c/o of chest discomfort, pt brought in outpt , underwent cardiac cath by Dr Morales , found to have multi vessel disease 50% Left Main, 70 % prox LAD, daig 80% CX 95%, OM 75% RCA 70% EF 50% pt has also been having chest pain at rest PMH: AAA, CAD, DJD, HLP, melanoma , PAD, prostate CA, PAD 05/01 pt c/o of pain at rest, decision to keep pt in hospital and undergo CABG on 05/03 no complaints of chest pain for surgery in am 05/04/17 No complaints. Doing well. 05/05/17 No complaints, doing well Objective: Vital Signs Date Time Temp Pulse Resp B/P Pulse Ox O2 Delivery O2 Flow Rate FiO2 05/05/17 07:47 96 Nasal Cannula 4.00 05/05/17 07:30 77 05/05/17 07:30 98.8 77 20 128/75 94 05/05/17 07:30 94 Nasal Cannula 2.00 05/05/17 06:39 75 05/05/17 05:05 77 05/05/17 04:14 75 05/05/17 03:17 Nasal Cannula 4.00 40 05/05/17 03:17 98.6 75 126/68 96 05/05/17 03:00 76 05/05/17 02:00 82 05/05/17 01:00 74 05/05/17 00:00 82 05/04/17 23:00 Nasal Cannula 4.00 40 05/04/17 23:00 80 05/04/17 23:00 98.6 78 127/67 97 05/04/17 22:00 76 05/04/17 21:22 98 Nasal Cannula 4.00 05/04/17 21:00 80 05/04/17 20:00 80 05/04/17 19:00 98.9 83 130/77 96 05/04/17 19:00 84 05/04/17 19:00 Nasal Cannula 3.00 05/04/17 18:40 85 05/04/17 17:50 80 05/04/17 16:30 96 05/04/17 15:30 97.6 91 20 157/80 95 05/04/17 15:30 89 05/04/17 15:30 95 Nasal Cannula 2.00 Labs: Laboratory Tests Test 05/05/17 06:00 White Blood Count 19.5 TH/MM3 (4.0-11.0) Red Blood Count 3.06 MIL/MM3 (4.50-5.90) Hemoglobin 9.9 GM/DL (13.0-17.0) Hematocrit 28.7 % (39.0-51.0) Mean Corpuscular Volume 93.6 FL (80.0-100.0) Mean Corpuscular Hemoglobin 32.4 PG (27.0-34.0) Mean Corpuscular Hemoglobin 34.6 % Concent (32.0-36.0) Red Cell Distribution Width 12.7 % (11.6-17.2) Platelet Count 122 TH/MM3 (150-450) Mean Platelet Volume 10.0 FL (7.0-11.0) Neutrophils (%) (Auto) % (16.0-70.0) Lymphocytes (%) (Auto) % (9.0-44.0) Monocytes (%) (Auto) % (0.0-8.0) Eosinophils (%) (Auto) % (0.0-4.0) Basophils (%) (Auto) % (0.0-2.0) Neutrophils # (Auto) TH/MM3 (1.8-7.7) Lymphocytes # (Auto) TH/MM3 (1.0-4.8) Monocytes # (Auto) TH/MM3 (0-0.9) Eosinophils # (Auto) TH/MM3 (0-0.4) Basophils # (Auto) TH/MM3 (0-0.2) CBC Comment AUTO DIFF Differential Total Cells 100 Counted Neutrophils % (Manual) 84 % (16-70) Band Neutrophils % 11 % (0-6) Lymphocytes % 2 % (9-44) Monocytes % 3 % (0-8) Neutrophils # (Manual) 18.5 TH/MM3 (1.8-7.7) Differential Comment FINAL DIFF MANUAL Platelet Estimate LOW (NORMAL) Platelet Morphology Comment NORMAL (NORMAL) Red Cell Morphology Comment NORMAL (NORMAL) Sodium Level 143 MEQ/L (136-145) Potassium Level 4.0 MEQ/L (3.5-5.1) Chloride Level 105 MEQ/L (98-107) Carbon Dioxide Level 30.0 MEQ/L (21.0-32.0) Anion Gap 8 MEQ/L (5-15) Blood Urea Nitrogen 21 MG/DL (7-18) Creatinine 0.68 MG/DL (0.60-1.30) Estimat Glomerular Filtration 111 ML/MIN Rate (>89) Random Glucose 108 MG/DL (74-106) Calcium Level 8.2 MG/DL (8.5-10.1) Magnesium Level 2.1 MG/DL (1.5-2.5) Result Diagram: 05/05/17 0600 05/05/17 0600 Cardiovascular: RRR Telemetry: NSR Pulmonary: CTA GI/: NABS, NT Incision: dry and intact CT: ~110ml/12hrs Plan: D/C chest tubes Diurese BB, statin, ASA Encourage ambulation Stim BM Anticipate d/c tomorrow (1) Unstable angina pectoris Plan: Stable on IV heparin and BB/NTP (2) 3-vessel CAD Plan: CABG tomorrow (3) Abdominal aortic aneurysm (AAA) (4) Hyperlipidemia Edwige Herrera MD May 05, 2017 13:34
--- NOTE | 2017-05-05 13:45 | EKG ---
Date Performed: 05/04/2017 Time Performed: 05:48:04 PTAGE: 82 years EKG: Sinus arrhythmia with PVCs. Inferior T wave changes are nonspecific Abnormal ECG PREVIOUS TRACING : 04/30/2017 09.32 PVCs are now present compared to the previous tracing. DOCTOR: Naren Hernandez Interpretating Date/Time 05/05/2017 13:45:09
[2017-05-05] MEDS ORDERED: PILL SPLITTER OTHER PRN (14:00)
[2017-05-05] MEDS ORDERED: METOPROLOL TARTRATE 25 MG TAB PO SCH (14:00)
[2017-05-05] MEDS: SENNOSIDES 8.6 MG TAB PO SCH (21:33)
[2017-05-06] VITALS (26 sets, daily range): BP systolic 106–133; BP diastolic 63–74; PULSE 54–116; RESP 16–20; TEMP 97.6–98.8; O2SAT 93–97
[2017-05-06] MEDS: AMIODARONE 200 MG TAB PO SCH ×3 (06:19→20:56)
[2017-05-06] MEDS: PANTOPRAZOLE SOD 40 MG DELAYED RELEASE TAB PO SCH (06:19)
[2017-05-06] MEDS: INSULIN ASPART SUPPLEMENTAL SCALE SQ SCH ×4 (06:19→21:00)
[2017-05-06] MEDS ORDERED: BISACODYL 10 MG SUPP RECTAL ONE (07:45)
[2017-05-06] MEDS: SODIUM CHLORIDE 0.9% FLUSH 10 ML FLUSH IV FLUSH SCH ×2 (08:00→20:56)
[2017-05-06] MEDS: DOCUSATE SODIUM 100 MG CAP PO SCH ×2 (08:36→21:00)
[2017-05-06] MEDS: METOPROLOL TARTRATE 25 MG TAB PO SCH ×2 (08:37→20:55)
[2017-05-06] MEDS: MAGNESIUM HYDROXIDE SUSP 30 ML CUP PO SCH (08:37)
[2017-05-06] MEDS: ASPIRIN 81 MG CHEW TAB PO SCH (08:37)
[2017-05-06] MEDS: FUROSEMIDE 40 MG/4 ML VIAL IV PUSH SCH ×2 (08:37→20:56)
[2017-05-06] MEDS: MULTIVITAMINS/MINERALS THERAPEUTIC TAB PO SCH (08:37)
[2017-05-06] MEDS: POLYETHYLENE GLYCOL 17 GM PKG PO SCH (08:37)
[2017-05-06] MEDS: MAGNESIUM SULFATE 1 GM PREMIX 100 ML IV SCH ×2 (15:00→16:15)
--- NOTE | 2017-05-06 15:26 | PD.CAR.PN ---
CVT Progress Note CVT: POD #: 3 Subjective/Hospital Course: 82/ male hx of CAD c/o of chest discomfort, pt brought in outpt , underwent cardiac cath by Dr Morales , found to have multi vessel disease 50% Left Main, 70 % prox LAD, daig 80% CX 95%, OM 75% RCA 70% EF 50% pt has also been having chest pain at rest PMH: AAA, CAD, DJD, HLP, melanoma , PAD, prostate CA, PAD 05/01 pt c/o of pain at rest, decision to keep pt in hospital and undergo CABG on 05/03 no complaints of chest pain for surgery in am 05/04/17 No complaints. Doing well. 05/05/17 No complaints, doing well 05/06/17 Converted to AFIB with controlled VR No complaints today Objective: Vital Signs Date Time Temp Pulse Resp B/P Pulse Ox O2 Delivery O2 Flow Rate FiO2 05/06/17 14:56 64 05/06/17 13:24 68 05/06/17 12:25 96 05/06/17 11:21 93 05/06/17 11:21 98.4 96 20 106/63 94 05/06/17 11:21 96 Room Air 05/06/17 10:03 106 05/06/17 09:06 116 05/06/17 08:30 106 05/06/17 07:57 93 21 05/06/17 07:20 97.6 98 18 122/70 93 05/06/17 07:20 88 05/06/17 07:20 93 Room Air 05/06/17 06:00 88 05/06/17 05:00 57 05/06/17 04:00 70 05/06/17 04:00 97 Nasal Cannula 2.00 05/06/17 04:00 98.4 70 16 128/64 97 05/06/17 03:00 65 05/06/17 02:00 57 05/06/17 01:00 58 05/06/17 00:00 58 05/05/17 23:01 95 Nasal Cannula 2.00 05/05/17 23:00 89 Room Air 05/05/17 23:00 64 05/05/17 23:00 98.7 64 16 116/66 89 05/05/17 22:00 62 05/05/17 21:00 60 05/05/17 20:00 62 05/05/17 20:00 98.9 62 16 119/68 94 05/05/17 20:00 94 Room Air 05/05/17 19:00 66 05/05/17 18:00 74 05/05/17 17:00 64 05/05/17 16:30 96 Nasal Cannula 4.00 05/05/17 16:00 70 05/05/17 15:30 98.5 64 20 125/67 92 05/05/17 15:30 93 Room Air Result Diagram: 05/05/17 0600 05/05/17 0600 Cardiovascular: IRR Telemetry: AFIB Pulmonary: CTA GI/: NABS Incision: dry and intact Plan: Supp Mg Continue amiodarone, metoprolol Consult Dr. Raphael for AFIB Encourage ambulation Stim BM Anticipate transfer to SNF once this rhythm issue is addressed. CBC, BMP, Mg in AM (1) Unstable angina pectoris Plan: Stable on IV heparin and BB/NTP (2) 3-vessel CAD Plan: CABG tomorrow (3) Abdominal aortic aneurysm (AAA) (4) Hyperlipidemia Edwige Herrera MD May 06, 2017 15:26
[2017-05-06] MEDS: oxyCODONE/ACETAMINOPHEN 5 MG/325 MG TAB PO PRN ×2 (20:55→23:51)
[2017-05-06] MEDS: SENNOSIDES 8.6 MG TAB PO SCH (21:00)
[2017-05-07] VITALS (14 sets, daily range): BP systolic 130–152; BP diastolic 69–84; PULSE 52–64; RESP 16–20; TEMP 97.8–98.3; O2SAT 93–97
[2017-05-07 05:43] LABS: HEMATOCRIT 29.2 % (39.0-51.0); MEAN CELL VOLUME 93.3 FL (80.0-100.0); MEAN CORPUSCULAR HEMOGLOBIN 32.1 PG (27.0-34.0); MEAN CORPUSCULAR HGB CONC 34.4 % (32.0-36.0); PLATELET COUNT 169 TH/MM3 (150-450); RED BLOOD COUNT 3.12 MIL/MM3 (4.50-5.90); RED CELL DISTRIBUTION WIDTH 12.8 % (11.6-17.2); REVIEW FLAG FINAL; WHITE BLOOD COUNT 11.2 TH/MM3 (4.0-11.0)
[2017-05-07] MEDS: INSULIN ASPART SUPPLEMENTAL SCALE SQ SCH ×2 (05:52→11:00)
[2017-05-07] MEDS: AMIODARONE 200 MG TAB PO SCH (05:55)
[2017-05-07] MEDS: PANTOPRAZOLE SOD 40 MG DELAYED RELEASE TAB PO SCH (05:55)
[2017-05-07 06:04] LABS: BICARBONATE 30.3 MEQ/L (21.0-32.0); MAGNESIUM 2.3 MG/DL (1.5-2.5); POTASSIUM 3.5 MEQ/L (3.5-5.1)
[2017-05-07] MEDS: SODIUM CHLORIDE 0.9% FLUSH 10 ML FLUSH IV FLUSH SCH (08:47)
[2017-05-07] MEDS: ASPIRIN 81 MG CHEW TAB PO SCH (08:48)
[2017-05-07] MEDS: FUROSEMIDE 40 MG/4 ML VIAL IV PUSH SCH (08:48)
[2017-05-07] MEDS: MULTIVITAMINS/MINERALS THERAPEUTIC TAB PO SCH (08:48)
[2017-05-07] MEDS: METOPROLOL TARTRATE 25 MG TAB PO SCH (08:48)
[2017-05-07] MEDS: MAGNESIUM HYDROXIDE SUSP 30 ML CUP PO SCH (08:58)
[2017-05-07] MEDS: POLYETHYLENE GLYCOL 17 GM PKG PO SCH (08:58)
[2017-05-07] MEDS: DOCUSATE SODIUM 100 MG CAP PO SCH (08:58)
[2017-05-07] MEDS ORDERED: APIXABAN 2.5 MG TABLET PO SCH (09:00)
[2017-05-07] MEDS ORDERED: LISINOPRIL 10 MG TAB PO SCH (09:00)
[2017-05-07] MEDS ORDERED: METO25TA3 PO (10:56)
[2017-05-07] MEDS ORDERED: THERM PO (10:56)
[2017-05-07] MEDS ORDERED: APIX2.5T PO (10:56)
[2017-05-07] MEDS ORDERED: Furosemide PO (10:56)
[2017-05-07] MEDS ORDERED: LISI10TA3 PO (10:56)
[2017-05-07] MEDS ORDERED: DOCU1CAP39 PO (10:56)
[2017-05-07] MEDS ORDERED: OXYC1TAB63 PO (10:56)
[2017-05-07] MEDS ORDERED: PANT40TA3 PO (10:56)
[2017-05-07] MEDS ORDERED: AMIO200T PO (10:56)
--- NOTE | 2017-05-07 11:08 | HHI.DS ---
Discharge Summary Admission Date May 02, 2017 at 12:43 Discharge Date: May 07, 2017 Admitting Diagnosis Unstable angina multivessel CAD (1) 3-vessel CAD Diagnosis: Principal (2) Unstable angina pectoris Diagnosis: Principal (3) Hyperlipidemia Diagnosis: Secondary (4) Abdominal aortic aneurysm (AAA) Diagnosis: Secondary Procedures CABG x 3 Brief History An 82-year-old male a patient of Dr. Kirt Pearson and Dr. Elvin Morales, history of coronary artery disease presented because of the chest discomfort for the last couple of weeks midsternal, dull in nature, feels like a squeezing sensation. Positive for associated shortness of breath. Underwent cardiac cath by Dr. Morales showing EF of 50%, left main of 50%, proximal LAD 70%, diagonal 80%, circumflex is 95%, the OM 75%, proximal RCA 70%. The PDA has 50%. We were consulted to evaluate for coronary artery bypass grafting. PAST MEDICAL HISTORY 1. History of abdominal aortic aneurysm, being followed. 2. Coronary artery disease. 3. Degenerative joint disease. 4. Headache. 5. Hernia. 6. Hyperlipidemia. 7. Peripheral arterial disease followed by Dr. Hickman. 8. Pre diabetes. 9. Prostate cancer. Had prior radiation in 2011. 10. Arthroscopic knee surgery. PAST SURGICAL HISTORY 1. Otherwise he has had a cardiac cath 2011, three-vessel disease. EF of 50% at that time. 2. Bilateral hernia repair. 3. Left partial knee replacement. 4. Skin cancer surgery. CBC/BMP: 05/07/17 0448 05/07/17 0448 Significant Findings Laboratory Tests Test 05/05/17 05/07/17 06:00 04:48 White Blood Count 19.5 TH/MM3 11.2 TH/MM3 (4.0-11.0) (4.0-11.0) Red Blood Count 3.06 MIL/MM3 3.12 MIL/MM3 (4.50-5.90) (4.50-5.90) Hemoglobin 9.9 GM/DL 10.0 GM/DL (13.0-17.0) (13.0-17.0) Hematocrit 28.7 % 29.2 % (39.0-51.0) (39.0-51.0) Platelet Count 122 TH/MM3 (150-450) Neutrophils % (Manual) 84 % (16-70) Band Neutrophils % 11 % (0-6) Lymphocytes % 2 % (9-44) Neutrophils # (Manual) 18.5 TH/MM3 (1.8-7.7) Platelet Estimate LOW (NORMAL) Blood Urea Nitrogen 21 MG/DL (7-18) 30 MG/DL (7-18) Random Glucose 108 MG/DL (74-106) Calcium Level 8.2 MG/DL 8.3 MG/DL (8.5-10.1) (8.5-10.1) Estimat Glomerular Filtration 87 ML/MIN (>89) Rate Imaging Last Impressions Chest X-Ray 05/04/17 0500 Signed Impressions: Service Date/Time: Thursday, May 04, 2017 04:11 - CONCLUSION: Interval extubation. Mild left base atelectasis. Eder Espinoza MD Lower Extremity Ultrasound 04/30/17 0000 Signed Impressions: Service Date/Time: Sunday, April 30, 2017 17:37 - CONCLUSION: 1. Patent saphenous veins with mapping as above. Bob Pastor MD Chest CT 04/30/17 0000 Signed Impressions: Service Date/Time: Sunday, April 30, 2017 18:18 - CONCLUSION: 1. Extensive atherosclerosis. 2. There is peribronchial cuffing in both lower lobes with minimal left lower lobe infiltrate identified. 3. Mild dilatation of the proximal descending thoracic aorta. Silviano Tamez MD Carotid Artery Ultrasound 04/30/17 0000 Signed Impressions: Service Date/Time: Sunday, April 30, 2017 17:02 - CONCLUSION: 1. Mild, <50%%, stenosis of the internal carotid artery origins bilaterally. 2. Antegrade vertebral artery flow bilaterally. oBb Pastor MD PE at Discharge chest - CTA COR - IRR ABD - soft, NT wound - dry and intact Hospital Course Patient underwent urgent CABG x 3 on 05/03/17. He had an uneventful postop course except for atrial fibrillation which has been treated with amiodarone. He will be placed on Eliquis due to this rhythm issue and hopefully, will convert to NSR soon. His Eliquis may be discontinued if he maintains a stable sinus rhythm. Discharge Disposition: Discharge to SNF Discharge Instructions DIET: Follow Instructions for: Heart Healthy Diet Activities you can perform: Weight Bearing as Hernandez, Shower Only-No Bath Activities to avoid: Lifting/Bending, Driving Follow up Referrals: Cardiology @ [facility] with Elvin Morales MD PCP Follow-up with Kirt Pearson DO Surgical with Edwige Herrera MD New Orders: BASIC METABOLIC PROF - 2 Weeks CBC NO DIFF - 2 Weeks X-RAY CHEST PA & LAT - 2 Weeks New Medications: Amiodarone (Amiodarone) 200 Mg Tab 200 MG PO BID Regulate Heart Beat #28 Ref 0 TAB Apixaban (Eliquis) 2.5 Mg Tab 2.5 MG PO BID Blood Clot Prevention #60 Ref 1 TAB Docusate Sodium (Dok) 100 Mg Cap 100 MG PO BID PRN Constipation #28 Ref 0 CAP Lisinopril (Lisinopril) 10 Mg Tab 10 MG PO DAILY Blood Pressure Management #30 Ref 2 TAB Metoprolol Tartrate (Metoprolol Tartrate) 25 Mg Tab 12.5 MG PO BID Blood Pressure Management #60 Ref 3 TAB Multiple Vitamins W/ Minerals (Thera M Plus) 1 Tab 1 TAB PO DAILY Nutritional Supplement #100 Ref 1 TAB Oxycodone-Acetaminophen (Oxycodone-Acetaminophen) 5-325 mg Tab 1 TAB PO Q3H PRN PAIN SCALE 1 TO 5 #30 Ref 0 TAB Pantoprazole (Pantoprazole) 40 Mg Tab 40 MG PO DAILY@06 Prevent Stress Ulcers #14 Ref 0 TAB ([Furosemide]) 40 MG/4 ML INJ 40 MG PO BID Blood Pressure Management #14 Ref 0 TAB Continued Medications: Aspirin DR (Aspirin Low Dose) 81 Mg Tabdr 81 MG PO DAILY TAB Ibuprofen (Advil Liqui-Gels) 200 Mg Capsule Multiple Vitamins W/ Minerals (Centrum Silver) 1 Chw Chw Discontinued Medications: Nebivolol (Bystolic) 2.5 Mg Tab 2.5 MG PO DAILY Blood Pressure Management #30 Ref 0 TAB Edwige Herrera MD May 07, 2017 11:08
--- NOTE | 2017-05-07 11:09 | PD.CARD.PN ---
Subjective Subjective Remarks No complaints. No SOB Objective Medications Current Medications Medications (Trade) Dose Ordered Sig/Nikki Route Start Time Stop Time Status Last Admin Sodium Chloride 1,000 ml @ 30 mls/hr Q24H IV 04/30/17 09:00 05/01/17 08:16 (Heparin-D5W Inj) 250 ml @ 0 mls/hr TITRATE IV 05/01/17 10:30 05/02/17 09:51 (NS Flush) 2 ml BID IV FLUSH 05/01/17 21:00 05/07/17 08:47 (NS Flush) 2 ml UNSCH PRN IV FLUSH 05/01/17 14:45 Albumin Human 12.5 gm 12.5 gm UNSCH PRN IV 05/03/17 12:45 (Lr 1000 ml Inj) 500 ml @ 500 mls/hr Q1H PRN IV 05/03/17 12:43 (Aspirin Chew) 81 mg DAILY PO 05/04/17 09:00 05/07/17 08:48 (Protonix) 40 mg DAILY@06 PO 05/04/17 06:00 05/07/17 05:55 (Cordarone) 400 mg Q8HR PO 05/03/17 14:00 05/07/17 05:55 (Tylenol) 650 mg Q4H PRN PO 05/03/17 12:45 (Tylenol Supp) 650 mg Q4H PRN RECTAL 05/03/17 12:45 (Percocet 5-325 Mg) 1 tab Q3H PRN PO 05/03/17 12:45 05/06/17 23:51 (Zofran Inj) 4 mg Q6H PRN IV PUSH 05/03/17 12:45 05/07/17 03:32 (Apresoline Inj) 10 mg Q4H PRN IV 05/03/17 12:45 Metoprolol Tartrate 2.5 mg 2.5 mg Q1H PRN IV PUSH 05/03/17 12:45 Potassium Chloride 100 ml @ 50 mls/hr UNSCH PRN IV 05/03/17 12:45 05/04/17 06:54 Potassium Chloride 100 ml @ 50 mls/hr UNSCH PRN IV 05/03/17 12:45 Potassium Chloride 100 ml @ 50 mls/hr UNSCH PRN IV 05/03/17 12:45 05/03/17 18:18 Magnesium Sulfate 2 gm/Sodium Chloride 104 ml @ 100 mls/hr UNSCH PRN IV 05/03/17 12:45 05/04/17 09:08 Magnesium Sulfate 2 gm/Sodium Chloride 104 ml @ 50 mls/hr UNSCH PRN IV 05/03/17 12:45 (Calcium Chloride Inj/NS Inj) 110 ml @ 100 mls/hr UNSCH PRN IV 05/03/17 12:45 (Calcium Chloride Inj) 0.5 gm UNSCH PRN IV 05/03/17 12:45 (Colace) 100 mg BID PO 05/04/17 21:00 05/06/17 08:36 (Theragran M Tab) 1 tab DAILY PO 05/05/17 09:00 05/07/17 08:48 (Milk Of Magnesia Liq) 30 ml DAILY PO 05/04/17 12:00 05/06/17 08:37 (Miralax) 17 gm DAILY PO 05/05/17 09:00 05/06/17 08:37 (Senokot) 8.6 mg HS PO 05/04/17 21:00 05/05/17 21:33 (Fleets Enema (Adult)) 133 ml UNSCH PRN RECTAL 05/04/17 11:00 (D50w (Vial) Inj) 50 ml UNSCH PRN IV 05/04/17 11:00 (Glucagon Inj) 1 mg UNSCH PRN OTHER 05/04/17 11:00 (NovoLOG SUPPLEMENTAL SCALE) 1 ACHS SQ 05/05/17 16:00 05/06/17 16:00 (Lasix Inj) 40 mg BID IV PUSH 05/05/17 21:00 05/07/17 08:48 (Pill Splitter) 1 ea UNSCH PRN OTHER 05/05/17 14:00 (Lopressor) 12.5 mg BID PO 05/06/17 09:00 05/07/17 08:48 (Prinivil) 10 mg DAILY PO 05/07/17 09:00 05/07/17 08:48 (Eliquis) 2.5 mg BID PO 05/07/17 09:00 UNV Vital Signs / I&O Vital Signs Date Time Temp Pulse Resp B/P Pulse Ox O2 Delivery O2 Flow Rate FiO2 05/07/17 09:06 93 21 05/07/17 07:20 94 Room Air 05/07/17 07:20 98.3 60 19 152/77 94 05/07/17 07:20 57 05/07/17 06:00 58 05/07/17 05:00 56 05/07/17 04:00 56 05/07/17 03:30 97.8 57 16 141/84 97 05/07/17 03:24 94 Room Air 05/07/17 03:00 59 05/07/17 02:00 56 05/07/17 01:00 56 05/07/17 00:00 52 05/06/17 23:33 94 Room Air 05/06/17 23:00 56 05/06/17 22:05 18 05/06/17 22:00 54 05/06/17 21:00 58 05/06/17 20:00 60 05/06/17 19:05 98.8 62 20 126/70 94 05/06/17 19:05 94 Room Air 05/06/17 19:00 61 05/06/17 18:01 60 05/06/17 17:03 66 05/06/17 15:45 97.9 63 20 133/74 94 05/06/17 15:45 94 Room Air 05/06/17 15:45 65 05/06/17 15:37 94 21 05/06/17 14:56 64 05/06/17 13:24 68 05/06/17 12:25 96 05/06/17 11:21 93 05/06/17 11:21 98.4 96 20 106/63 94 05/06/17 11:21 96 Room Air I/O 05/06/17 05/06/17 05/06/17 05/07/17 05/07/17 05/07/17 07:00 15:00 23:00 07:00 15:00 23:00 Intake Total 240 ml 920 ml 120 ml Output Total 1200 ml 375 ml 615 ml Balance -960 ml 545 ml -495 ml Intake Oral 240 ml 920 ml 120 ml Output Urine Total 1200 ml 375 ml 615 ml # Voids 3 # Bowel Movements 0 3 Physical Exam GENERAL: Well developed, well nourished. No acute distress. HEENT: Jugular venous pressure is normal. CHEST: Few crackles left base. Unlabored respiratory effort. CARDIAC: Regular rate and rhythm without S3, S4, or murmur. ABDOMEN: Soft, nontender, no hepatosplenomegaly. Bowel sounds present. EXTREMITIES: No clubbing, cyanosis. 1+ edema Laboratory Laboratory Tests Test 05/07/17 04:48 White Blood Count 11.2 TH/MM3 Red Blood Count 3.12 MIL/MM3 Hemoglobin 10.0 GM/DL Hematocrit 29.2 % Mean Corpuscular Volume 93.3 FL Mean Corpuscular Hemoglobin 32.1 PG Mean Corpuscular Hemoglobin 34.4 % Concent Red Cell Distribution Width 12.8 % Platelet Count 169 TH/MM3 Mean Platelet Volume 9.9 FL Sodium Level 138 MEQ/L Potassium Level 3.5 MEQ/L Chloride Level 100 MEQ/L Carbon Dioxide Level 30.3 MEQ/L Anion Gap 8 MEQ/L Blood Urea Nitrogen 30 MG/DL Creatinine 0.84 MG/DL Estimat Glomerular Filtration 87 ML/MIN Rate Random Glucose 93 MG/DL Calcium Level 8.3 MG/DL Magnesium Level 2.3 MG/DL Assessment and Plan Problem List: (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 Cont reduced dose Eliquis + amio and BB Elvin Morales MD May 07, 2017 11:09
[2017-05-07] MEDS ORDERED: ROSU10 PO (11:43)
== END 2017-05-07 12:02 | DRG 234 ==
LOC: HCAT 07:34 → HDIC 07:35 → HCAT 11:37 → HCIS 11:38 → OBSVTOIN 05-02 12:43 → HCVI 05-03 08:17 → HCVR 05-03 12:51 → HCIN 05-04 14:42
PROVIDERS: ADMIT Internal Medicine Cardiovascular Disease; ATTEND Internal Medicine Cardiovascular Disease
PROC: 4A023N7 Measurement of Cardiac Sampling and Pressure, Left Heart, Percutaneous Approach (ICD-10-PCS; 2017-04-30)
PROC: B2151ZZ Fluoroscopy of Left Heart using Low Osmolar Contrast (ICD-10-PCS; 2017-04-30)
PROC: B2111ZZ Fluoroscopy of Multiple Coronary Arteries using Low Osmolar Contrast (ICD-10-PCS; 2017-04-30)
PROC: 021109W Bypass Coronary Artery, Two Arteries from Aorta with Autologous Venous Tissue, Open Approach (ICD-10-PCS; 2017-05-03)
PROC: 06BQ4ZZ Excision of Left Saphenous Vein, Percutaneous Endoscopic Approach (ICD-10-PCS; 2017-05-03)
PROC: 02BN0ZX Excision of Pericardium, Open Approach, Diagnostic (ICD-10-PCS; 2017-05-03)
PROC: 5A1221Z Performance of Cardiac Output, Continuous (ICD-10-PCS; 2017-05-03)
PROC: 02100Z9 Bypass Coronary Artery, One Artery from Left Internal Mammary, Open Approach (ICD-10-PCS; principal; 2017-05-03 07:39)
DX: I25.110 Atherosclerotic heart disease of native coronary artery with unstable angina pectoris (principal); I31.0 Chronic adhesive pericarditis; I48.0 Paroxysmal atrial fibrillation; I73.9 Peripheral vascular disease, unspecified; E78.5 Hyperlipidemia, unspecified; I71.4 Abdominal aortic aneurysm, without rupture; M19.90 Unspecified osteoarthritis, unspecified site; R73.03 Prediabetes; Z92.3 Personal history of irradiation; Z79.82 Long term (current) use of aspirin; Z87.891 Personal history of nicotine dependence; Z85.46 Personal history of malignant neoplasm of prostate; Z85.820 Personal history of malignant melanoma of skin
CPT/HCPCS: 36430; 71010; 71020; 71250; 76937; 80048; 80076; 81001; 82272; 82948; 83036; 83735; 85007; 85025; 85027; 85610; 85730; 86850; 86900; 86901; 86920; 87641; 88305; 93005; 93318; 93458; 93880; 93970; 93998; 94002; 94060; 94150; 94640; 94664; 94667; 94668; C1769; C1893; J0131; J0171; J0282; J0690; J1644; J1815; J1817; J1940; J2150; J2250; J2370; J2405; J2720; J2930; J3010; J3370; J3475; J3480; J7030; J7050; P9016; P9047; Q9967

== ENCOUNTER 2017-12-02 09:39 | Day surgery (SDC) | payer MEDICARE ==
[~2017-12-02] VITALS: Ht 185.4 cm; Wt 94.9 kg
[~2017-12-02 09:39] MED LIST changes: +AMIO200T PO; +APIX2.5T PO; -ASPI81 PO; +ASPI81TA25 PO; -BACT2OIN TOP; +CENTCHW3; -CENTTAB9 PO; +DOCU1CAP39 PO; +Furosemide PO; +IBUP200C17; -IMDU30TA PO; +LISI10TA3 PO; -METO25 PO; +METO25TA3 PO; -NITR.4 SL; +OXYC1TAB63 PO; +PANT40TA3 PO; -RAPA8CAP PO; +ROSU10 PO; -SULF1TAB47 PO; +THERM PO; -ZOCO40TA PO
[2017-12-02] MEDS ORDERED: IODIXANOL 320 MG/ML 50 ML VIAL (for Cath Lab) OTHER ONE (09:40)
[2017-12-02 10:15] VITALS: BP 155/88; PULSE 56; RESP 18; TEMP 97.4; O2SAT 98
[2017-12-02] MEDS ORDERED: SODIUM CHLORIDE 0.9% FLUSH 10 ML FLUSH IV FLUSH PRN ×2 (10:15)
[2017-12-02] MEDS ORDERED: SODIUM BICARBONATE 100 MEQ in D5W 1000 ML IV SCH (10:15)
[2017-12-02 10:39] LABS: BICARBONATE 31.6 MEQ/L (21.0-32.0); CALCIUM 8.9 MG/DL (8.5-10.1); CREATININE 0.84 MG/DL (0.60-1.30)
--- NOTE | 2017-12-02 11:09 | PD.VS.PN ---
Pre-operative Note Pre-operative diagnosis: PAD Planned procedure: Aortogram w/ B LE angiogram Interval History: Pt has no change in LE symptoms. Ready for surgery Labs: Laboratory Results Test 12/02/17 09:58 Anion Gap 4 MEQ/L (5-15) Blood Urea Nitrogen 19 MG/DL (7-18) Creatinine 0.84 MG/DL (0.60-1.30) Random Glucose 105 MG/DL (74-106) Calcium Level 8.9 MG/DL (8.5-10.1) Sodium Level 139 MEQ/L (136-145) Potassium Level 3.8 MEQ/L (3.5-5.1) Chloride Level 103 MEQ/L (98-107) Carbon Dioxide Level 31.6 MEQ/L (21.0-32.0) Blood: none needed Imaging: will make in OR Orders: NPO Post-operative destination: DOCU Operative site marked: No (bilateral procedure) Consent: Informed consent has been obtained from Juan Alberto Garcia. I have explained the procedure in detail and discussed the risks, benefits, and potential complications. All questions have been answered. Melchor Moise MD Dec 02, 2017 11:09
[2017-12-02] MEDS ORDERED: HEPARIN-NS/PF FLUSH BAG 1,000 ML IV FLUSH ONE (11:27)
[2017-12-02] MEDS ORDERED: MIDAZOLAM HCL 2 MG/2 ML VIAL ONE (11:27)
[2017-12-02] MEDS ORDERED: HEPARIN SODIUM - IV 10,000 UNITS/10 ML VIAL ONE (11:28)
[2017-12-02] MEDS ORDERED: ONDANSETRON HCL 4 MG/2 ML VIAL ONE (11:36)
--- NOTE | 2017-12-02 12:02 | HHI.PR ---
cc: Melchor Moise MD Immediate Post Op Note Procedure Date: Dec 02, 2017 Pre Op Diagnosis: B LE pain, PAD Post Op Diagnosis: same Surgeon: Melchor Moise Conference Manager(s): none Procedure: Aortogram w/ B LE angiogram Findings: 1. No significant disease on the LEFT 2. 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
--- NOTE | 2017-12-02 12:13 | CATHPROC ---
[employer] HIS Report Study Information Study Number Scheduled Start Study Start [id number] 12/02/2017 Dec 02 2017 11:22AM Referring Institution Admit Source Facility Department 1 Other [facility] - Machine Taper Physician and Clinical Staff Initial Melchor Atkins Precast Concrete Ironworker Rogelio Ramos,RN Recorder Lily Marroquin,RT(R) (BS) Scrub Elgin Carroll,RT(R) Procedures Performed Procedure Location (Site) Vessel Name Abdominal Angiogram Abd Aorta (A3) Aorta Wire insertion Fem Art (right) Femoral Art Equipment Time Storekeeper Helper Description Size Mfg Part Number Used/Scraped [id number] 11:28 ANGIO-DYNAMICS OMNI FLUSH 65CM CATHETER FR 4 Used *[id number] INTRODUCER SET, 11:28 [employer] FR 5 [id number] *[id number] Used MICROPUNCTURE, STIFFENED [id number] 11:28 indico INDUSTRIES PACK, CCL CUSTOM * Used *[id number] 11:28 KBLE MEDICAL PRESSURE TUBING 48" 48" [id number] 11:28 NAMIC TUBING, HIGH PRESSURE 20" 20" Used *[id number] TUBING, PRESSURE INJECTION [id number] 11:28 NAMIC PACER 72" Used 72" *[id number] 11:28 NYCOMED OMNIPAQUE, 300 MG, 150ML 150ML [id number] Used 11:28 NYCOMED OMNIPAQUE, 300 MG, 50ML 50ML [id number] Used [id number] 11:28 PACHECO MEDICAL BLANKET,WARM AIR CCL * Used *[id number] 11:28 TERUMO MEDICAL SHEATH, FR4 TERUMO (10CM) FR 4 Used *[id number] CATHETER, FR4 GUIDE ANGLED 11:49 TERUMO MEDICAL/DANNY FR 4 [id number] *[id number] Used 120CM 11:48 TERUM[employer] MEDICAL/DANNY CATHETER, FR5 ANGLED 100CM FR 5 [id number] *[id number] Used WIRE, ANGLED GLIDE .035 [id number] 11:28 TERUMO MEDICAL/DANNY 260CM Used 260CM *[id number] History: Allergies Allergy Reaction codeine NAUSEA pramipexole History: Risk Factors Family History of Hypertension Dyslipidemia Previous [place] Previous Heart Failure Premature CAD Yes Yes Yes No No Prior Valve Prior PCI Prior PCIDate Prior CABG Prior CABGDate Surgery No Yes 04/01/2012 Yes 04/12/2017 Cerebrovascular Peripheral Artery Chronic Lung On Dialysis Diabetes Disease Disease Disease No No Yes No No History: Symptoms/Diagnosis Selection Items Chest pain History: CV Disease Selection Items Known CAD History: Other Disease Selection Items CAD HTN History: Other Current Smoker Method Quit Packs a Day Years Used Pack Years No Cigarettes 50 Years Ago 1 10 10 Labs Creatinine (mg/dl) 0.50-1.30 0.8 Medication Medication Total Dose (Bolus/Oral) Medication Total Dosage/Unit 1% XYLOCAINE 20 mL FENTANYL 50 mcg VERSED 1 mg ZOFRAN 4 mg Medications (Bolus/Oral) Medication Time Given Dosage/Unit Administered By Reason ZOFRAN 12/02/2017 11:38:47 AM 4 mg Rogelio Ramos 4 mg ZOFRAN given in lab by Rogelio Ramos RN in Left Antecubital via Peripheral IV. 1% XYLOCAINE 12/02/2017 11:41:06 AM 20 mL Melchor Moise 20 mL 1% XYLOCAINE given in lab by Melchor Moise in Right Groin via Subcutaneous. FENTANYL 12/02/2017 11:42:17 AM 50 mcg Rogelio Ramos 50 mcg FENTANYL given in lab by Rogelio Ramos RN in Left Antecubital via Peripheral IV. VERSED 12/02/2017 2:14:20 PM 1 mg Rogelio Ramos 1 mg VERSED given in lab by Rogelio Ramos RN in Left Antecubital via Peripheral IV. Medication (Drip) Medication Time Given Dosage/Unit Concentration/Unit Diluent (ml) Solution SODIUM BICARBONATE 12/02/2017 11:37:03 AM 125 mL/hr 150 1000 NaCl .9 DRIP Patient arrived on 125 mL/hr SODIUM BICARBONATE DRIP in Left Antecubital via Peripheral IV. Pump/Drip Flow = 0 ml/hr using NaCl .9 with a concentration of 150 in 1000 ml. Initial Case Assessment Cardiovascular HR NIBP 55 141/79 Edema Present Skin color Skin None Normal Warm Dry Circulatory - Right Pulses Dorsalis Pedis Femoral 2 2 Scale (0,1,2,3,4,d) Scale (0,1,2,3,4,d) Circulatory - Lower Extremities Color Lower Right Color Lower Left Normal Normal Neurological State Oriented to time-place- Alert Moves all extremities person Respiration - General Respiration Rate SpO2 (%) (B/min) 13 99 Chronological Log Time Study Chronological Log 11:20:40 Patient arrived via Bed. 11:20:44 Patient Name, D.O.B, / Armband Verified By R.N. 11:20:46 Consent signed by the physician and the patient and verified by the Machine Taper staff. 11:21:48 Pre-op and post- op instructions given; patient acknowledges understanding of instructions. 11:21:49 Verbal Stimulation=2 Physical Stimulation=2 Airway=2 Respiration=2 TOTAL=8. (0=absent, 1=li mited, 2=present) 11:21:51 Presedation assessment performed by Machine Taper RN. 11:21:54 Patient has been NPO for More than 6Hrs. 11:21:55 Skin Breakdown none per pt 11:21:56 Patient Warmer Placed on the Table. 11:21:58 Madhuri Prominences Protected 11::58 A # 20 IV was noted in the Antecubital (left). Grade = 0 11:22:00 History and physical on the chart or being dictated. Assessment: Initial Case, HR=55 BPM, BLLO=240/79 mmhg, Edema=None, Color=Normal, Skin = Warm, D ry Right Pulses: Enoch Ped=2, Femoral=2 Lower Right Extremities: Color=Normal 11:22:01 Lower Left Extremities: Color=Normal Neurological: State=Alert, Ox3, MCCARTY Respiration: Resp=13 B/min, SpO2=99 % Vitals capture started with the following parameters, Patient=Adult, Interval=5 min, Initial Pr eusvzf=408 mmHg, 11:26:31 Deflation Rate=5 mmHg, Cuff placed on Right Ankle 11:27:40 HR=53 bpm, YIWF=859/79 mmhg, SpO2=99.0 %, Resp=9 B/min, Sade=10, Hall=2 11:32:10 HR=54 bpm, FAJY=813/74 mmhg, SpO2=99.0 %, Resp=15 B/min, Sade=10, Hall=2 11:34:40 Bilateral groins prepped with 2% chlorhexidine, and draped after a 3 minute waiting time. Time Out. Correct patient, correct procedure, correct physician, power injector loaded, or not loaded with contrast with 11:35:55 surgical team present. Time Out Concurred by MD and individual staff in procedure. Patient arrived on 125 mL/hr SODIUM BICARBONATE DRIP in Left Antecubital via Peripheral IV. Pum p/Drip Flow = 0 11:37:03 ml/hr using NaCl .9 with a concentration of 150 in 1000 ml. 11:37:11 HR=61 bpm, AGUI=153/77 mmhg, SpO2=98.0 %, Resp=6 B/min, Sade=10, Hall=2 11:38:47 4 mg ZOFRAN given in lab by Rogelio Ramos RN in Left Antecubital via Peripheral IV. 11:40:02 Case Start 11:41:06 20 mL 1% XYLOCAINE given in lab by Melchor Moise in Right Groin via Subcutaneous. 11:42:08 HR=53 bpm, VRAG=356/79 mmhg, SpO2=99.0 %, Resp=10 B/min, Sade=10, Hall=2 11:42:17 50 mcg FENTANYL given in lab by Rogelio Ramos RN in Left Antecubital via Peripheral IV. 11:42:17 Access site was Right Femoral Artery. A INTRODUCER SET, MICROPUNCTURE, STIFFENED FR 5 was advanced into the Fem Art (right) using the 11:42:21 Percutaneous technique. A SHEATH, FR4 TERUMO (10CM) FR 4 was exchanged in the Fem Art (right). This was necessary in or sandy to 11:42:26 accomodate a larger catheter. 11:43:24 A WIRE, ANGLED GLIDE .035 260CM 260CM was inserted via Fem Art (right). A OMNI FLUSH 65CM CATHETER FR 4 was advanced over a wire. OMNIPAQUE, 300 MG, 150ML 150ML was us ed for 11:43:31 injections. 11:44:38 Wire removed 11:46:50 Through a OMNI FLUSH 65CM CATHETER FR 4, The Abdominal Aorta was injected with 10 cc's of c ontrast. 11:47:09 HR=54 bpm, UBXX=910/85 mmhg, SpO2=99.0 %, Resp=7 B/min, Sade=10, Hall=2 11:49:09 Catheter was removed A CATHETER, FR4 GUIDE ANGLED 120CM FR 4 was advanced over a wire. OMNIPAQUE, 300 MG, 150ML 150M L was 11:49:10 used for injections. Through a OMNI FLUSH 65CM CATHETER FR 4, The Femoral Run-off was injected with 4 cc's per secon d. Injections 11:51:50 continued the down the leg. 11:52:45 HR=55 bpm, YTWR=474/85 mmhg, SpO2=98.0 %, Resp=10 B/min, Sade=10, Hall=2 11:57:11 HR=59 bpm, PBEG=339/80 mmhg, SpO2=98.0 %, Resp=11 B/min, Sade=10, Hall=2 11:57:33 Catheter was removed 11:57:34 Wire removed 11:57:46 Case End 11:59:30 Sheath removed; pressure applied to access site. 11:59:45 No case complications noted. 11:59:48 Bedside Report will be given. 12:02:12 HR=59 bpm, YAID=128/82 mmhg, SpO2=97.0 %, Resp=14 B/min, Sade=10, Hall=2 12:07:13 HR=58 bpm, HFCU=266/80 mmhg, SpO2=91.0 %, Resp=15 B/min, Sade=10, Hall=2 12:10:05 Sterile dressing applied to site 12:12:12 HR=60 bpm, URYP=572/84 mmhg, SpO2=96.0 %, Resp=10 B/min, Sade=10, Hall=2 12:12:55 Vitals capture stopped. 12:15:56 Patient moved to stretcher 14:14:20 1 mg VERSED given in lab by Rogelio Ramos, RN in Left Antecubital via Peripheral IV. End Study - Contrast Media Used In Study Contrast Total Opened (mL) Total Used (mL) Total Wasted (mL) Omnipaque 70 70 0 End Study - Maximum Contrast Load Max Contrast Load (mL) 593.8 End Study - Radiation Exposure Fluoro Time (minutes) 3.9 End Study - Patient Disposition Complications Transferred To Interventional Outcome No Machine Taper Holding No attempt made
[2017-12-02] MEDS ORDERED: ACETAMINOPHEN 325 MG TAB PO ONE (13:30)
--- NOTE | 2017-12-04 10:25 | MP ---
cc: MELCHOR MOISE MD DATE OF SURGERY 12/02/2017 PRIMARY DIAGNOSIS Bilateral lower exam peripheral arterial occlusive disease, pain. POSTOPERATIVE DIAGNOSIS Bilateral lower exam peripheral arterial occlusive disease, pain. PROCEDURE Aortogram with bilateral extremity angiogram. MEDICATIONS Melchor Moise MD ANESTHESIA Local with sedation INDICATION Mr. Garcia is an 82-year-old gentleman with bilateral lower extremity pain and peripheral arterial occlusive disease. He was taken to the operating room for angiographic evaluation and potential treatment. There was no prior catheter-based imaging available for my review. DESCRIPTION OF THE PROCEDURE Informed consent was obtained from the patient. He was taken to the operating room and placed supine on the operating room table and appropriate time-out was taken to ensure the patient's identity, operative site and planned procedure. The administration of antibiotics was not necessary as this is a clean procedure without the planned implantation of any foreign object. Everyone in the room agreed with the time-out and we proceeded. His bilateral groins were prepped and draped and the right groin was anesthetized with 1% lidocaine. A 21 gauge micropuncture needle was used to access the right common femoral artery. This was exchanged using Seldinger technique for a micropuncture sheath through which a 0.035 Glidewire was introduced and the micropuncture sheath was exchanged for a 4-Divehi sheath. A VCF catheter was placed over the wire into the sheath and an aortogram and pelvic arteriograms was obtained. The Glidewire was reintroduced and navigated down to the left common femoral artery and the VCF catheter was advanced over this and a left lower extremity arteriogram was obtained. Wire was reintroduced, the wire and catheter removed and a right lower extremity arteriograms was obtained through the sheath. The sheath was removed and pressure was held for hemostasis. There were no complications. I was present, scrubbed and performed the entire procedure. INTERPRETATION This patient has a patent terminal aorta, common iliac arteries, hypogastric artery and external iliac arteries. There is no hemodynamically significant stenoses in any of these blood vessels. The left common femoral artery and profunda are patent. The superficial femoral artery is patent. The popliteal artery is patent and there is three-vessel runoff to the midcalf without any hemodynamically significant stenoses. On the right-hand side, the common femoral artery and profunda are patent. The superficial femoral is patent. The popliteal artery is occluded, but there are large well-formed perigeniculate collaterals which reconstitute the distal popliteal artery and there is at least two-vessel runoff below this. MD SAM Gates/RADHA /6:06 PM /10:13 AM
== END 2017-12-02 16:18 | disposition home or self-care (01) ==
LOC: HDOC 09:39 → HDIC 09:40 → HDOC 16:18
PROVIDERS: ATTEND Surgery
DX: I73.9 Peripheral vascular disease, unspecified (principal); I25.10 Atherosclerotic heart disease of native coronary artery without angina pectoris; I10 Essential (primary) hypertension; E78.5 Hyperlipidemia, unspecified; R73.03 Prediabetes; I71.4 Abdominal aortic aneurysm, without rupture; R51 Headache; M19.90 Unspecified osteoarthritis, unspecified site; Z85.46 Personal history of malignant neoplasm of prostate; Z95.1 Presence of aortocoronary bypass graft
CPT/HCPCS: 75716; 80048; C1769; C1887; C1893; J1644; J2250; J2405; J3010; J7070; Q9967

== ENCOUNTER → 2018-02-17 | Outpatient (CLI) | payer MEDICARE ==
[~2018-02-17] MED LIST changes: -AMIO200T PO; -APIX2.5T PO; -DOCU1CAP39 PO; -Furosemide PO; -LISI10TA3 PO; -OXYC1TAB63 PO; -PANT40TA3 PO; -THERM PO
--- NOTE | 2018-02-18 10:36 | RSPPFT ---
DATE OF PROCEDURE: 02/17/18 COMMENTS: Spirometry shows FVC of 3.6 predicted 4.3, FEV1 of 1.9 predicted 3.3, FEV1/FVC ratio 55% predicted 76%. IMPRESSION: On the basis of the above, patient has an obstructive lung defect with increased RV/TLC ratio and a significant increase in airways resistance. There is no response following acutely inhaled bronchodilator treatment.
== END ==
LOC: PHRSP 07:32
PROVIDERS: ATTEND Internal Medicine Cardiovascular Disease
DX: R06.00 Dyspnea, unspecified (principal)
CPT/HCPCS: 94060; 94726; 94729